=== PATIENT | female | born 1955 | race Caucasian/White ===

== ENCOUNTER → 2017-10-14 | Outpatient (CLI) | payer OTHER, MEDICARE ==
[2016-08-06 10:11] VITALS: BMI 34.7
[~2017-10-14] MED LIST: ACE325 PO; ACET325S18 PO; ALB18R INH; ALBU8.5H IH; AMIT100T53 PO; AMLO-96 PO; AMLO-99 PO; AMOX-559 PO; ARIP10TA4 PO; ARIP2TAB9 PO; ARIP400S IM; ARIP5TAB28 PO; ASCO-180 PO; ASPI81TA94 PO; AZIT-1 PO; BIOT5CAP PO; CANA100T PO; CAR100 PO; CAR200 PO; CARB-82 PO; CARB-91 PO; CARB100C4 PO; CARB100O2 PO; CARB100O7 PO; CARB200C2 PO; CARB400T10 PO; CEL100 PO; CELE-1 PO; CELE100C79 PO; CHOL500025 PO; CITA-139 PO; CLO1 PO; CLON-1 PO; CLON-294 PO; CLON-327 PO; CLON-389 PO; CODE118S5 PO; CORED EACH EAR; CYA1000 PO; CYAN1TAB45 SL; CYCL10TA29 PO; DES5 PO; DIPH-740 PO; DOCU-416 PO; EST5T TD; ESTR0.5T18 PO; ESZ2 PO; ESZO1TAB19 PO; EZE10 PO; FA/M1TAB27 PO; FENO130C6 PO; FENO134C5 PO; FENO43CA PO; FISH OIL1 CAP PO; FOLI-68 PO; FUR20 PO; FUR40 PO; FURO-43 PO; FURO-45 PO; GABA-549 PO; GABA-551 PO; HORMONE PATCH TD; HYDR-2966 PO; HYDR-4225 PO; IBUP600T22 PO; LAMO50TA PO; LEV112 PO; LEV125 PO; LEV2I IV; LEVO125T77 PO; LEVO150T72 PO; LEVO50 PO; LEVO75TA68 PO; LOR1 PO; LOR5/325 PO; LORA-1221 PO; LORA-636 PO; LURA40TA3 PO; LURA60TA; MECL-111 PO; METF-1 PO; METF-410 PO; METO-233 PO; METO200T12 PO; METO50TA PO; METO50TA19 PO; MIRT-1 PO; MULT-1379 PO; MULT-820 PO; NALT50TA15 PO; NEBI2.5T5; NIT4 SL; OMEG-11 PO; OMEP-125 PO; OMEP40CA79 PO; OXY20 PO; OXYC-717 PO; OXYC-865 PO; OXYC1TAB54 PO; OXYC20TA86 PO; PAN20 PO; PAN40 PO; PENI-24 PO; PER PO; POTA-53 PO; PRAZ2CAP26 PO; QUET150T3 PO; QUET25TA PO; QUET25TA30 PO; QUEXR300PT GT; RABE20TA33 PO; RAME8TAB43 PO; ROSU40TA18 PO; ROSU5TAB8 PO; SENN-284 PO; SITA1TAB17 PO; SODI30SP6 NS; SPIR100T30 PO; TRA50 PO; VAL80 PO; VALS160T2; VALS320T12 PO; VALS40TA6 PO; VITAMINS; WAR5 PO; [UNRECOGNIZED DRUG - CODE] PO; [UNRECOGNIZED DRUG - CODE] PO; [UNRECOGNIZED DRUG - CODE] PO; [UNRECOGNIZED DRUG - CODE] PO; hygroton PO; trintellix PO
[2017-10-14 11:29] LABS: PLATELET COUNT, AUTOMATED 228 K/uL (150-450)
[2017-10-14 11:43] LABS: LDL CHOLESTEROL 53 mg/dl
== END ==
LOC: LAB 10:28
PROVIDERS: ATTEND Nurse Practitioner Family
DX: R07.9 Chest pain, unspecified (principal); E11.69 Type 2 diabetes mellitus with other specified complication; E11.40 Type 2 diabetes mellitus with diabetic neuropathy, unspecified; E34.9 Endocrine disorder, unspecified; Z98.84 Bariatric surgery status; I25.2 Old myocardial infarction; I10 Essential (primary) hypertension; R09.02 Hypoxemia; R73.01 Impaired fasting glucose; C73 Malignant neoplasm of thyroid gland; E66.01 Morbid (severe) obesity due to excess calories; G47.33 Obstructive sleep apnea (adult) (pediatric); I89.0 Lymphedema, not elsewhere classified; R53.82 Chronic fatigue, unspecified; E78.00 Pure hypercholesterolemia, unspecified; E55.9 Vitamin D deficiency, unspecified
CPT/HCPCS: 36415; 82040; 82247; 82306; 82310; 82374; 82435; 82465; 82565; 82607; 82947; 83036; 83718; 84075; 84132; 84155; 84295; 84443; 84450; 84460; 84478; 84520; 85025

== ENCOUNTER → 2017-11-12 | Outpatient (CLI) | payer OTHER, MEDICARE ==
[2016-08-06 10:11] VITALS: BMI 34.7
[~2017-11-12] MED LIST changes: -VALS160T2; +VALS160T7
--- NOTE | 2017-11-12 14:03 | EKG ---
FACILITY: [facility] PATIENT NAME: CLIFF PERRY : [id number] MR: [id number] V: [id number] EXAM DATE: ORDERING PHYSICIAN: FELIPE MARTINEZ TECHNOLOGIST: Aníbal Simmons Reason : Blood Pressure : / mmHG Vent. Rate : 065 BPM Atrial Rate : 065 BPM P-R Int : 202 ms QRS Dur : 092 ms QT Int : 430 ms P-R-T Axes : 068 043 043 degrees QTc Int : 447 ms Normal sinus rhythm Normal ECG Confirmed by DAVID MOREIRA ([id number]) on 11/12/2017 3:14:12 PM Referred By: Confirmed By:DAVID MOREIRA
--- NOTE | 2017-11-13 22:43 | RADIOLOGY IMAGING REPORT ---
FACILITY: [facility] PATIENT NAME: CLIFF PERRY : [id number] MR: [id number] V: [id number] EXAM DATE: ORDERING PHYSICIAN: FELIPE MARTINEZ TECHNOLOGIST: Mayelin Varela EXAMINATION:TWO-DIMENSIONAL ECHOCARDIOGRAPH REASON:HTN/HX VT 2D Measurements (normal values in centimeters) LV endLV endRV endVent.LV PostAorticLeftPercent DiastolicSystolicDiastolicSeptumWallRootAtriumShortening (3.5-5.7)(0.9-2.6)(0.6-1.1)(0.6-1.1)(2.0-3.7)(1.9-4.0)(25-35%) [id number]% STROKE VOLUME: 70ml ESTIMATED EJECTION FRACTION:73% PARASTERNAL LONG AXIS: Overall left ventricular systolic function appears to be normal. No specific wall motion abnormalities are noted. PARASTERNAL SHORT AXIS: Overall left ventricular function again appears to be normal. No wall motion abnormalities are noted. Color examination of the valves was unremarkable in this view. The view was somewhat technically difficult. Aortic valve is trileaflet in configuration & appears to open normally. Right ventricular also appears to contract normally. APICAL FOUR AND TWO CHAMBER: Normal left ventricular ejection fraction. No specific wall motion abnormalities are noted in this view. Aortic valve area & mitral valve area both measure within normal ranges at 3.0 & 2.9cm2 respectively. Left atrial & right atrial volumes are measured within normal ranges at 25 & 27ml/m2. Tricuspid regurgitation Vmax measured 1.83m/sec with an estimated right atrial pressure of 3mm Hg giving a total right ventricular systolic pressure within normal range at 16mm Hg. SUBCOSTAL VIEW: No pericardial effusion was noted. No atrioseptal or ventriculoseptal defects were appreciated. Doppler examination of the mitral valve in diastole does reveal a normal pattern. There is reversal with Valsalva suggesting moderate decrease in diastolic function. OVERALL IMPRESSION: 1. Normal left ventricular ejection fraction of 73% with a moderate decrease in diastolic function. 2. Normal chamber sizes with the right ventricle being mildly enlarged. Other chamber sizes are all normal. 3. Color examination of the valves reveals a trace of mitral & tricuspid insufficiency with estimated right ventricular systolic pressures within normal ranges. No other abnormalities are noted. Specifically no wall motion abnormalities were noted. Dictated by: Héctor Farmer M.D. on 11/12/2017 at 21:46 Transcribed by: NAUN on 11/13/2017 at 13:34 Approved by: Héctor Farmer M.D. on 11/13/2017 at 22:40 [facility]
== END ==
LOC: US 00:18
PROVIDERS: ATTEND Nurse Practitioner Family
DX: I50.30 Unspecified diastolic (congestive) heart failure (principal); I51.7 Cardiomegaly; I34.0 Nonrheumatic mitral (valve) insufficiency; I07.1 Rheumatic tricuspid insufficiency
CPT/HCPCS: 93005; 93306

== ENCOUNTER 2017-12-08 00:21 | Inpatient (IN) | payer OTHER, MEDICARE ==
[2016-08-06 10:11] VITALS: Ht 162.6 cm; Wt 97.5 kg
[~2017-12-08] VITALS: Ht 162.6 cm; Wt 97.5 kg
[2017-12-08] VITALS (16 sets, daily range): BP systolic 131–151; BP diastolic 66–76
[~2017-12-08 00:21] MED LIST changes: +QUEXR300PT PO; +VORT10TA PO
[2017-12-08] MEDS ORDERED: LIDOCAINE/SOD BICARB 8.4% SYR ID ONE (06:00)
[2017-12-08] MEDS ORDERED: MIDAZOLAM 2 MG/2 ML VIAL IVP PRN (06:00)
[2017-12-08] MEDS ORDERED: NORMOSOL R SOLN(*) 1000 ML BAG 1,000 ML IV PRN (06:00)
[2017-12-08] MEDS ORDERED: CLINDAMYCIN(*) 900 MG/NS 50 ML 50 ML IVPB ONE (06:00)
[2017-12-08] MEDS ORDERED: PROPOFOL EMUL(*) 10MG/ML 20 ML 20 ML ONE (06:26)
[2017-12-08] MEDS ORDERED: PROPOFOL EMUL(*) 10MG/ML 20 ML 60 ML ONE (06:26)
[2017-12-08] MEDS ORDERED: DEXAMETHASONE SOD PHOS 10MG/ML ONE (06:26)
[2017-12-08] MEDS ORDERED: MIDAZOLAM 2 MG/2 ML VIAL ONE (06:26)
[2017-12-08] MEDS ORDERED: ONDANSETRON 4 MG/2 ML VIAL ONE (06:26)
[2017-12-08] MEDS ORDERED: fentaNYL CITR 100 MCG/2 ML AMP ONE (06:26)
[2017-12-08] MEDS ORDERED: LIDOCAINE MPF 1% 5 ML VIAL ONE ×2 (06:26)
[2017-12-08] MEDS ORDERED: ROCURONIUM BROM 10 MG/ML 10 ML ONE (06:26)
[2017-12-08] MEDS ORDERED: REMIFENTANIL HCL 1 MG VIAL ONE (06:33)
[2017-12-08] MEDS ORDERED: NS(*) 0.9% 100 ML BAG 200 ML ONE (06:34)
[2017-12-08] MEDS ORDERED: PHENYLEPHRINE 10 MG/1 ML VIAL ONE (07:45)
[2017-12-08] MEDS ORDERED: KETAMINE HCL 500 MG/10 ML VIAL ONE (07:46)
[2017-12-08] MEDS ORDERED: NS 0.9% IRRIGATION 1000ML PLCT IR ONE (07:55)
[2017-12-08] MEDS ORDERED: ePHEDrine 25 MG/5 ML DISP.SYR IVP ONE (08:02)
--- NOTE | 2017-12-08 09:12 | RADIOLOGY IMAGING REPORT ---
[place] [facility] [place] NAME: Connie Chambers : 1955 MR: [id number] V: [id number] EXAM DATE: ORDERING PHYSICIAN: ZOILA HAWKINS TECHNOLOGIST: Location: [facility] Patient: Connie Chambers : 1955 Visit/Account:[id number] Date of Sevice: 12/08/2017 Technique: CERVICAL SPINE 1 VIEW HISTORY: Hardware removal Comparison studies: CT cervical spine February 06, 2014 FINDINGS: An interbody spacer is noted at C5-C6. There is anterior spinal fusion hardware at C6-C7. Endplate osteophytes are noted within the mid cervical spine. IMPRESSION: 1. Operative radiograph as characterized above. Report Dictated By: Mark Worthington DO at 12/08/2017 9:06 AM Report E-Signed By: Mark Worthington DO at 12/08/2017 9:09 AM WSN:[id number]
[2017-12-08] MEDS ORDERED: APAP/HYDROCODONE 325/5 TAB PO PRN (10:05)
[2017-12-08] MEDS ORDERED: ACETAMINOPHEN 500 MG TAB PO PRN (10:05)
[2017-12-08] MEDS ORDERED: BISACODYL 10 MG SUPP PR PRN (10:05)
[2017-12-08] MEDS ORDERED: FLUSH 10 ML SYR IVP PRN (10:05)
[2017-12-08] MEDS ORDERED: LR(*) 1000 ML BAG 1,000 ML IV PRN (10:05)
[2017-12-08] MEDS ORDERED: BENZOCAINE/MENTHOL 1 EACH LOZG PO PRN (10:05)
[2017-12-08] MEDS ORDERED: ACETAMINOPHEN(*)1000 MG/100 ML 100 ML IVPB PRN (10:05)
[2017-12-08] MEDS ORDERED: HYDROmorphone HCL 2 MG/ML SDV IVP PRN (10:05)
[2017-12-08] MEDS ORDERED: diphenhydrAMINE 25 MG CAP PO PRN (10:05)
[2017-12-08] MEDS ORDERED: ONDANSETRON 4 MG/2 ML VIAL IVP PRN (10:05)
[2017-12-08] MEDS ORDERED: MAGNESIUM HYDROXIDE* 30ML UDCP PO PRN (10:05)
[2017-12-08] MEDS ORDERED: DIAZEPAM 5 MG TAB PO PRN (10:05)
[2017-12-08] MEDS ORDERED: oxyCODONE HCL 5 MG CAP PO PRN (10:05)
--- NOTE | 2017-12-08 10:38 | OPERATIVE REPORT 1 ---
EVENT DATE: December 08, 2017 SURGEON: Alejandro Manuel MD ANESTHESIOLOGIST: Kit Jay MD ANESTHESIA: General endotracheal anesthesia. CHEF'S ASSISTANT: Leonard Sorto PA-C PREOPERATIVE DIAGNOSIS Left C7 radiculopathy with retained cervical implants. POSTOPERATIVE DIAGNOSIS Left C7 radiculopathy with retained cervical implants. PROCEDURE PERFORMED 1. Removal of C5-C6 anterior cervical plate. 2. Anterior cervical discectomy and fusion at C6-C7. IV FLUIDS 1400 mL. ESTIMATED BLOOD LOSS 30 mL. IMPLANTS An 8 mm lordotic size large footprint nanoLOCK interbody implant from [employer] and two 3.5 x 14 mm screws also from [employer] plus a 1 mL Vi-Bone. SPECIMENS None. DRAINS A 10 Bulgarian round Favian-De Leon drain. COMPLICATIONS None. DISPOSITION Post anesthesia care unit. INDICATIONS FOR SURGERY Ms. Chambers is several years status post C5-C6 anterior cervical discectomy and fusion. She was doing relatively well until she began experiencing radiating pain into the left periscapular region as well as occasional radiating symptoms down the posterior aspect of the upper arm. She had numbness and tingling in the same distribution as her pain, and no improvement with nonsurgical management. Imaging studies showed large disk osteophyte complex on the left at C6-C7 compromising the C7 nerve root as it exited through the foramen. Secondary to ongoing symptoms and failure to improve with nonsurgical treatment, Ms. Chambers was offered and elected to undergo removal of her previously placed anterior cervical plate and then anterior cervical discectomy and fusion at C6-C7. Prior to surgery, we obtained an ENT consult that showed symmetric functioning vocal folds bilaterally. A long discussion was had with the patient prior to surgery regarding risks, benefits and alternatives to surgery. Specific risks including bleeding, infection, damage to surrounding structures, damage to the esophagus with possible need for tube feedings, swallowing difficulty, damage to the superior or recurrent laryngeal nerve, persistent and/or worsening pain, nerve damage, spinal cord injury, , blindness, sexual dysfunction, autonomic nervous system dysfunction and other unforeseen medical and surgical complications were discussed. She voiced an understanding and wished to proceed. A discussion was had regarding neurophysiologic monitoring. Neurophysiologic monitoring is not an infallible means of preventing neurologic injury. The patient understands that times, neurophysiologic monitoring signals can be lost in the absence of a correctable maneuver. In this situation, the surgeon is blinded to any adverse changes, and therefore is unable to make any maneuvers to alter this course. Throughout the procedure, there were no significant changes in neurophysiologic monitoring. DESCRIPTION OF PROCEDURE On the date of surgery, the patient was met in the preoperative hold area. All questions were answered, and the operative site was identified and marked by myself. The patient was brought in good condition to the operating room, and after succumbing to anesthesia, was positioned in a supine position with the neck slightly extended on a standard OR bed. All bony protuberances and soft tissues were well padded in the standard fashion. Care was taken to maintain appropriate perfusion pressures during anesthesia. Preoperative antibiotics were administered according to the appropriate timing schedule. At the conclusion of the procedure, sponge and needle counts were correct x 2. A final time out was undertaken by members of the operating team to confirm correct patient, correct levels and correct surgery. An incision was then made through the old surgical scar on the left side, and blunt dissection was taken down to the level of the sternocleidomastoid muscle. The carotid pulse was identified, and dissection was taken medial to the carotid sheath, coming down onto the anterior aspect of the cervical spine. The previously placed cervical plate at C5-C6 was identified, and the screws were cleared of soft tissue and bone. Appropriate tools were used to remove the implant. The C5-C6 fusion was explored and found to be solid. Attention was then turned to the C6-C7 level. A high speed terese was used to remove a large overlying osteophyte. Disk space was identified, and the disk incised using a 15 blade. Self retaining retractors were placed, and the microscope was brought into the field. Progressively smaller curettes were used to remove the disk from ventral to dorsal, taking care to strip all cartilaginous fragments from the end plates of the vertebral bodies above and below. High speed terese was used to take down the osteophytes, and the uncovertebral joints were resected with a high speed terese as needed. Once we encountered the posterior annulus, the forward angled curettes were used to carefully dissect through the posterior annulus. A significant amount of soft disk was found on the left side, and removed from a layer between the posterior annulus and the posterior longitudinal ligament. Once the PLL was identified, a forward angled curette and a nerve hook was used to dissect through it carefully. The PLL was then taken down, taking care to remove posterior osteophytes from the superior aspect of C7 and the inferior aspect of C6, using a #1 and #2 Kerrison. Disk osteophyte complex was taken down on the left as well as the right utilizing #2 and #1 Kerrison punches. The nerve hook was ultimately used to ensure appropriate decompression of both the spinal cord and the neural elements in the foramina. The nerve hook was easily passed out the neural foramina bilaterally at the conclusion of the decompression. First a 7 mm, and then an 8 mm rasp of the same footprint of the interbody device was used to further decorticate and trial the interbody space. An 8 mm tall graft was chosen. This was packed with Vi-Bone and then inserted into the disk space and countersunk about 1 mm. Extension was taken out of the table, and the awl was then used through the holes in the implant to penetrate the end plates above and below. Screws were placed, and the construct was found to be securely in place. A lateral radiograph confirmed correct positioning of the implant. The wound was then irrigated, and then closed in layers using interrupted sutures for the platysma, inverted interrupted sutures for the subcutaneous tissue and then a running subcuticular skin stitch. Sponge and needle counts were correct x 2. A 10 Bulgarian round Favian-De Leon drain was left deep to the platysma. POSTOPERATIVE CARE PLAN The patient will remain in the hospital overnight with the head of bed elevated. She will be discharged home on postoperative day #1 and will follow up with me in 2 weeks' time for wound check and examination. TIEN
[2017-12-08] MEDS ORDERED: NS(*) 0.9% 250 ML BAG 250 ML IV PRN (14:40)
--- NOTE | 2017-12-08 15:02 | Hospitalist Consultation ---
History of Present Illness Requesting Physician Dr. Manuel Reason for Consult Medication Management History of Present Illness Patient admitted after anterior cervical discectomy and fusion. There were no known complications. EBL 60cc. History Problems: (1) Depression Status: Chronic (2) HTN (hypertension) Status: Chronic (3) CAD (coronary artery disease) Status: Chronic (4) Thyroid cancer Status: Chronic (5) Paresthesias Status: Chronic (6) GERD (gastroesophageal reflux disease) Status: Chronic Home Meds Reported Medications Levothyroxine Sodium (LEVOTHYROXINE SODIUM) 0.125 Mg Tab, 0.25 MG PO QDAY, TAB 12/08/17 Vortioxetine Hydrobromide (Brintellix) 10 Mg Tablet, 1 TAB PO DAILY 12/02/17 Quetiapine Fumarate (SEROQUEL XR) 300 Mg Tabcr, 2 TAB PO HS 12/02/17 Multivits,Th W-Fe,Other Min (THERA-M) 1 Each Tablet, 1 EACH PO QDAY 08/21/17 Albuterol Sulfate (VENTOLIN HFA) 18 Gm Inh, 2 PUFF INH PRN, INH 08/19/17 Gabapentin (GABAPENTIN) 300 Mg Capsule, 300 MG PO TID, CAPSULE 08/19/17 Cyanocobalamin/Cobamamide (B-12 5,000 MCG SUBLINGUAL TAB) 1 Each Tab.subl, 1 EACH SL Q3D 08/19/17 Rosuvastatin Calcium (CRESTOR) 40 Mg Tablet, 40 MG PO QAM 04/17/17 Valsartan (DIOVAN) 320 Mg Tablet, 320 MG PO QAM 04/17/17 Prazosin Hcl (PRAZOSIN HCL) 2 Mg Capsule, 5 MG PO QHS, CAPSULE MINIPRESS 04/17/17 Omeprazole (OMEPRAZOLE) 20 Mg Capsule.dr, 1 CAP PO QDAY, CAP 04/17/17 Cholecalciferol (Vitamin D3) (VITAMIN D3) 5,000 Unit Tablet, 5000 UNIT PO QAM 04/17/17 Biotin (BIOTIN) 5 Mg Capsule, 5 MG PO QAM, CAPSULE 04/17/17 Metoprolol Succinate (METOPROLOL SUCCINATE) 200 Mg Tab.er.24h, 1 TAB PO QDAY, TAB 04/17/17 Hydrochlorothiazide (HYDROCHLOROTHIAZIDE) 25 Mg Tablet, 1 TAB PO QDAY, TAB 04/17/17 Folic Acid (FOLIC ACID) 1 Mg Tablet, 1 MG PO QDAY, TAB 04/17/17 Aripiprazole (ABILIFY MAINTENA) 400 Mg Suser.vial, 400 MG IM MONTHLY 04/17/17 Aspirin (ASPIRIN) 81 Mg Tab.chew, 81 MG PO QDAY, TAB.CHEW 04/17/17 Nitroglycerin (Nitroquick) 0.4 Mg Subl, 0.4 MG SL PRN 01/14/12 Discontinued Reported Medications Levothyroxine Sodium (SYNTHROID) 150 Mcg Tablet, 250 MCG PO QDAY 08/19/17 Quetiapine Fumarate (SEROQUEL XR) 150 Mg Tab.er.24h, 300 MG PO QHS 04/17/17 Quetiapine Fumarate (SEROQUEL) 25 Mg Tablet, 25 MG PO BID TAKE 50MG AT 0900, 25MG AT 1300 AND 25MG AT 1700 04/17/17 Carbamazepine (CARBAMAZEPINE ER) 400 Mg Tab.er.12h, 200 MG PO QAM TEGRETOL XR 04/17/17 Naltrexone Hcl (NALTREXONE HCL) 50 Mg Tablet, 50 MG PO QHS REVIA 04/17/17 Docusate Sodium (COLACE) 100 Mg Capsule, 100 MG PO QDAY, CAPSULE 04/17/17 Allergies: Coded Allergies: Sulfa (Sulfonamide Antibiotics) (Verified Allergy, Severe, AIRWAY OBSTRUCTION, 12/02/17) cephalexin (Verified Allergy, Mild, 12/02/17) Only allergic to the Extended Release Keflex. strawberry (Verified Allergy, Mild, 12/02/17) Antihistamines - Ethanolamine (Verified Allergy, Unknown, 12/02/17) Patient History: FH: diabetes mellitus FATHER FH: heart disease MOTHER Hx Smoking: No Smoking Status: Never Smoker Exposure to Second Hand Smoke?: No Caffeine Intake: Tea Caffeine/Cups Per Day: 1-2/DAY Hx Alcohol Use: No Hx Substance Use Disorder: No Social Drug Use: Never Social Drugs: Prescription Drugs Amount Of Social Drug/s Used: n/a History of IV Drug Use: No Review of Systems All Systems Reviewed/Normal: Yes, Except as Noted Constitutional: No Fever Cardiovascular: No Chest Pain Respiratory: No Shortness of Breath Exam Vital Signs Vital Signs Date Time Temp Pulse Resp B/P (MAP) Pulse Ox O2 Delivery O2 Flow Rate FiO2 12/08/17 12:15 74 138/69 (92) 95 Nasal Cannula 2.0 12/08/17 10:25 97.7 16 General Appearance: Alert, Awake, No Acute Distress, Afebrile Cardiovascular: Normal Rhythm & Peripheral Pulses Respiratory: No Respiratory Distress, Clear to Auscultation Chest: No Tenderness GI: Abd Soft and Non-Tender Extremities: No Edema Psych: Alert & Oriented X3, Appropriate Mood & Affect Assessment and Plan Problems: (1) Paresthesias Status: Chronic Assessment & Plan: She is on chronic management with Gabapentin. (2) HTN (hypertension) Status: Chronic Assessment & Plan: She is on chronic management with Metoprolol, Hydrochlorothiazide, Valsartan. Hydrochlorothiazide will be held. Metoprolol and Valsartan will be started with hold parameters. (3) GERD (gastroesophageal reflux disease) Status: Chronic Assessment & Plan: She is on chronic treatment with Omeprazole. Will place on Protonix during admission. (4) Depression Status: Chronic Assessment & Plan: She is on chronic management with Abilify, Seroquel, Prazosin, Trintellix. (5) CAD (coronary artery disease) Status: Chronic Assessment & Plan: She is on chronic treatment with Crestor. She has a history of 3 cardiac stents. (6) S/P thyroidectomy Status: Chronic Assessment & Plan: Secondary to thyroid cancer. She is on chronic treatment with levothyroxine. Venous Thromboembolism Antithrombotics Is Pt On Any Antithrombotics?: No Prophylaxis Tx Contraindicated Pharmacological Contraindicati: Surgical Contraindication Exam Sepsis Risk: No Definite Risk Problem Qualifiers (1) HTN (hypertension): Hypertension type: essential hypertension Qualified Codes: I10 - Essential ( primary) hypertension (2) Depression: Depression Type: major depressive disorder WEST AGUIRREP Dec 08, 2017 15:01
[2017-12-08] MEDS ORDERED: PROMETHAZINE 25 MG/ML 1 ML AMP IVP PRN (15:05)
[2017-12-08] MEDS ORDERED: LEV125 PO (15:10)
[2017-12-08] MEDS ORDERED: PRAZ5CAP16 PO (15:22)
[2017-12-08] MEDS: CLINDAMYCIN(*) 900 MG/NS 50 ML 50 ML IVPB SCH ×2 (15:27→22:16)
[2017-12-08] MEDS: DOCUSATE SODIUM 100 MG CAP PO SCH (20:54)
[2017-12-08] MEDS: GABAPENTIN 300 MG CAP PO SCH (20:54)
[2017-12-08] MEDS ORDERED: QUETIAPINE FUMARATE 300 MG TABCR PO SCH (21:00)
[2017-12-08] MEDS ORDERED: PRAZOSIN HCL 5 MG CAP PO SCH (21:00)
[2017-12-08] MEDS ORDERED: QUEtiapine FUM 100 MG TAB PO SCH (21:45)
[2017-12-09 05:52] VITALS: BP 118/57
[2017-12-09] MEDS ORDERED: LEVOTHYROXINE SOD 0.025 MG TAB PO SCH (06:00)
[2017-12-09] MEDS ORDERED: LEVOTHYROXINE SOD 0.125 MG TAB PO SCH ×2 (06:30→09:00)
[2017-12-09] MEDS: CLINDAMYCIN(*) 900 MG/NS 50 ML 50 ML IVPB SCH (06:44)
[2017-12-09 07:20] VITALS: BP 120/67
[2017-12-09] MEDS: GABAPENTIN 300 MG CAP PO SCH (08:54)
[2017-12-09] MEDS: DOCUSATE SODIUM 100 MG CAP PO SCH (08:54)
--- NOTE | 2017-12-09 08:55 | RADIOLOGY IMAGING REPORT ---
[place] [facility] [place] NAME: Connie Chambers : 1955 MR: [id number] V: [id number] EXAM DATE: ORDERING PHYSICIAN: ZOILA HAWKINS TECHNOLOGIST: Location: [facility] [place] Patient: Connie Chambers : 1955 Visit/Account:[id number] Date of Sevice: 12/09/2017 Technique: CERVICAL SPINE 2 OR 3 VIEW HISTORY: Postoperative Comparison studies: Cervical spine radiographs December 08, 2017 FINDINGS: Anterior cervical fusion hardware is noted at C6-C7. There is interbody spacer with osseou s fusion at C5-C6. Overall, there is gross anatomic alignment at these respective levels. Degenerat diya changes are again noted characterized by endplate osteophyte formation most pronounced at C3 and C4. The vertebral body heights are maintained. No kumar or retrolisthesis. IMPRESSION: 1. Postoperative and degenerative changes as described above. There is gross anatomic alignment. Report Dictated By: Mark Worthington DO at 12/09/2017 8:49 AM Report E-Signed By: Mark Worthington DO at 12/09/2017 8:51 AM WSN:[email or web address]
[2017-12-09 08:56] VITALS: BP 107/57
[2017-12-09] MEDS ORDERED: PANTOPRAZOLE SOD 40 MG TABEC PO SCH (09:00)
[2017-12-09] MEDS ORDERED: VORTIOXETINE HYDROBROMIDE 10 MG TAB PO SCH (09:00)
[2017-12-09] MEDS ORDERED: METOPROLOL SUCC XL 50 MG TABCR 50 MG TAB.ER.24H PO SCH (09:00)
[2017-12-09] MEDS ORDERED: ROSUVASTATIN CALCIUM 10 MG TAB PO SCH (09:00)
[2017-12-09] MEDS ORDERED: VORTIOXETINE HYDROBROMIDE PO SCH (09:00)
[2017-12-09] MEDS ORDERED: VALSARTAN 80 MG TAB PO SCH (09:00)
[2017-12-09] MEDS ORDERED: HYDR-385 PO (09:25)
[2017-12-09] MEDS ORDERED: DOCU240C84 PO (09:25)
--- NOTE | 2017-12-09 09:26 | Hospitalist Progress Note ---
Subjective Progress Notes Subjective Patient has no complaints this morning. She states she is ready to go home. Patient Complains of: Cardiovascular: No: Chest Pain Respiratory: No: Shortness of Breath Physical Exam Vital Signs Date Time Temp Pulse Resp B/P (MAP) Pulse Ox O2 Delivery O2 Flow Rate FiO2 12/09/17 08:56 107/57 (74) 12/09/17 07:20 96 Room Air 12/09/17 07:20 98.8 61 16 12/08/17 14:30 2.0 General Appearance: Alert, Awake, No Acute Distress, Afebrile Cardiovascular: Regular Rate and Rhythm Respiratory: No Respiratory Distress, Clear to Auscultation Psych: Alert & Oriented X3, Appropriate Mood & Affect Assessment and Plan Problems: (1) Paresthesias Status: Chronic Assessment & Plan: She is on chronic management with Gabapentin. (2) HTN (hypertension) Status: Chronic Assessment & Plan: She is on chronic management with Metoprolol, Hydrochlorothiazide, Valsartan. Hydrochlorothiazide will be stopped. Metoprolol and Valsartan will be continued with hold parameters. The patient will continue to monitor her blood pressure. She will follow up with Lois Glover regarding her lower blood pressures. (3) GERD (gastroesophageal reflux disease) Status: Chronic Assessment & Plan: She is on chronic treatment with Omeprazole. (4) Depression Status: Chronic Assessment & Plan: She is on chronic management with Abilify, Seroquel, Prazosin, Trintellix. (5) CAD (coronary artery disease) Status: Chronic Assessment & Plan: She is on chronic treatment with Crestor. She has a history of 3 cardiac stents. (6) S/P thyroidectomy Status: Chronic Assessment & Plan: Secondary to thyroid cancer. She is on chronic treatment with levothyroxine. Exam Sepsis Risk: No Definite Risk Problem Qualifiers (1) HTN (hypertension): Hypertension type: essential hypertension Qualified Codes: I10 - Essential ( primary) hypertension (2) Depression: Depression Type: major depressive disorder WEST AGUIRRE Dec 09, 2017 09:25
== END 2017-12-09 10:20 | disposition home or self-care (01) | DRG 473 ==
LOC: OR 00:21 → OBSVTOIN 10:25 → INTOOBSV 10:25 → MED 10:25
PROVIDERS: ADMIT Orthopaedic Surgery; ATTEND Orthopaedic Surgery
PROC: 0PP304Z Removal of Internal Fixation Device from Cervical Vertebra, Open Approach (ICD-10-PCS; 2017-12-08)
PROC: 0RB30ZZ Excision of Cervical Vertebral Disc, Open Approach (ICD-10-PCS; 2017-12-08)
PROC: 0RG10A0 Fusion of Cervical Vertebral Joint with Interbody Fusion Device, Anterior Approach, Anterior Column, Open Approach (ICD-10-PCS; principal; 2017-12-08 07:07)
DX: M50.123 Cervical disc disorder at C6-C7 level with radiculopathy (principal); M25.78 Osteophyte, vertebrae; I25.10 Atherosclerotic heart disease of native coronary artery without angina pectoris; G47.33 Obstructive sleep apnea (adult) (pediatric); I10 Essential (primary) hypertension; E89.0 Postprocedural hypothyroidism; E78.5 Hyperlipidemia, unspecified; K21.9 Gastro-esophageal reflux disease without esophagitis; F31.9 Bipolar disorder, unspecified; R20.2 Paresthesia of skin; Z95.5 Presence of coronary angioplasty implant and graft; I25.2 Old myocardial infarction; Z99.81 Dependence on supplemental oxygen; Z90.410 Acquired total absence of pancreas; Z96.653 Presence of artificial knee joint, bilateral; Z85.850 Personal history of malignant neoplasm of thyroid; Z88.2 Allergy status to sulfonamides; Z88.8 Allergy status to other drugs, medicaments and biological substances
CPT/HCPCS: 36415; 72020; 72040; 86850; 86900; 86901; 97161; C1713; J1100; J2001; J2250; J2370; J2405; J2704; J3010; J3490; J7050; L0120

== ENCOUNTER 2018-02-18 13:03 | Emergency (ER) | payer OTHER, MEDICARE ==
[2016-08-06 10:11] VITALS: Wt 97.5 kg
[~2018-02-18 13:03] MED LIST changes: -CITA-139 PO; +CITA-145 PO; +DOCU240C84 PO; +HYDR-385 PO; -METF-410 PO; +METF-411 PO; +PRAZ5CAP16 PO
--- NOTE | 2018-02-18 13:13 | ER Report ---
History and Physical Time Seen By MD: 13:12 HPI/ROS CHIEF COMPLAINT: Headache, twitching the muscle under the left eyelid. HISTORY OF PRESENT ILLNESS: 62-year-old female patient presents to emergency room with complaint of headache and twitching in the muscle on the left eyelid. Patient states this been going on for last several weeks. Patient states that she has had some episodes where she suddenly lightheaded, but not had any syncopal episodes. Patient denies any nausea or vomiting. Patient states that the headaches have been significant. She states that she has had some blurred vision as well. She states she is not taking any medication for this. She states symptoms typically resolve on their own. Patient states she went to an acute care clinic here in town, and was referred to the emergency room. REVIEW OF SYSTEMS: Respiratory: No cough, no dyspnea. Cardiovascular: No chest pain, no palpitations. Gastrointestinal: No vomiting, no abdominal pain. Musculoskeletal: As noted above Allergies: Coded Allergies: Sulfa (Sulfonamide Antibiotics) (Verified Allergy, Severe, AIRWAY OBSTRUCTION, 02/18/18) cephalexin (Verified Allergy, Mild, 02/18/18) Only allergic to the Extended Release Keflex. strawberry (Verified Allergy, Mild, 02/18/18) Antihistamines - Ethanolamine (Verified Allergy, Unknown, 02/18/18) Home Meds Reported Medications Docusate Calcium (SURFAK) 240 Mg Capsule, 240 MG PO QDAY, #9 CAPSULE 12/09/17 Prazosin Hcl (PRAZOSIN HCL) 5 Mg Capsule, 5 MG PO QHS, CAPSULE 12/08/17 Levothyroxine Sodium (LEVOTHYROXINE SODIUM) 0.125 Mg Tab, 0.25 MG PO QDAY, TAB 12/08/17 Vortioxetine Hydrobromide (Brintellix) 10 Mg Tablet, 1 TAB PO DAILY 12/02/17 Quetiapine Fumarate (SEROQUEL XR) 300 Mg Tabcr, 2 TAB PO HS 12/02/17 Multivits, W-Fe,Other Min (THERA-M) 1 Each Tablet, 1 EACH PO QDAY 08/21/17 Albuterol Sulfate (VENTOLIN HFA) 18 Gm Inh, 2 PUFF INH PRN, INH 08/19/17 Gabapentin (GABAPENTIN) 300 Mg Capsule, 300 MG PO TID, CAPSULE 08/19/17 Cyanocobalamin/Cobamamide (B-12 5,000 MCG SUBLINGUAL TAB) 1 Each Tab.subl, 1 EACH SL Q3D 08/19/17 Rosuvastatin Calcium (CRESTOR) 40 Mg Tablet, 40 MG PO QAM 04/17/17 Valsartan (DIOVAN) 320 Mg Tablet, 320 MG PO QAM 04/17/17 Omeprazole (OMEPRAZOLE) 20 Mg Capsule.dr, 1 CAP PO QDAY, CAP 04/17/17 Cholecalciferol (Vitamin D3) (VITAMIN D3) 5,000 Unit Tablet, 5000 UNIT PO QAM 04/17/17 Biotin (BIOTIN) 5 Mg Capsule, 5 MG PO QAM, CAPSULE 04/17/17 Metoprolol Succinate (METOPROLOL SUCCINATE) 200 Mg Tab.er.24h, 1 TAB PO QDAY, TAB 04/17/17 Folic Acid (FOLIC ACID) 1 Mg Tablet, 1 MG PO QDAY, TAB 04/17/17 Aripiprazole (ABILIFY MAINTENA) 400 Mg Suser.vial, 400 MG IM MONTHLY 04/17/17 Nitroglycerin (Nitroquick) 0.4 Mg Subl, 0.4 MG SL PRN 01/14/12 Discontinued Reported Medications Hydrocodone Bit/Acetaminophen (HYDROCODON-ACETAMINOPHEN 5-325) 1 Each Tablet, 1- 2 EACH PO Q6H Y for PAIN, #49 TAB 12/09/17 Past Medical/Surgical History Patient has a past medical history of migraines, [place], angina, hypertension, hyperlipidemia, asthma, pneumonia, reflux, chronic back pain, hypothyroidism, bipolar, depression, anxiety, thyroid cancer. Patient has a surgical history of cardiac stent, gastric sleeve, arthrotomy, hysterectomy, cholecystectomy, bladder surgery, multiple knee, foot and arm surgery, back and neck fusion, sinus surgery 3. Patient has a family medical history of cancer, psychiatric problems. Reviewed Nurses Notes: Yes Hx Smoking: No Smoking Status: Never Smoker Exposure to Second Hand Smoke?: No Hx Substance Use Disorder: No Hx Alcohol Use: No Constitutional Vital Sign - Last 24 Hours 02/18/18 02/18/18 02/18/18 02/18/18 13:08 14:00 14:15 14:30 Temp 98.0 Pulse 69 61 61 Resp 18 21 9 B/P (MAP) 155/83 139/69 (92) 134/68 (90) 150/70 (96) Pulse Ox 92 93 93 O2 Delivery Room Air Intake and Output 02/18/18 02/18/18 02/19/18 15:00 23:00 07:00 Intake Total 1000 ml Balance 1000 ml Physical Exam General Appearance: The patient is alert, has no immediate need for airway protection and no current signs of toxicity. Eyes: Pupils equal and round no injection. Extraocular movements intact. Respiratory: Chest is non tender, lungs are clear to auscultation. Cardiac: regular rate and rhythm Gastrointestinal: Abdomen is soft and non tender, no masses, bowel sounds normal. Musculoskeletal: Neck: Neck is supple and non tender. Extremities have full range of motion and are non tender. Skin: No rashes or lesions. Neuro: Patient is alert and oriented 4, cranial nerves II-XII grossly intact. DIFFERENTIAL DIAGNOSIS: After history and physical exam differential diagnosis was considered for nausea and imbalance, stroke, muscle spasm, adverse reaction to medication. Medical Decision Making Data Points Result Diagram: 02/18/18 1331 02/18/18 1331 Laboratory Hematology Test 02/18/18 13:31 02/18/18 13:34 Red Blood Count 4.22 M/uL (4.17-5.56) Mean Corpuscular Volume 86.8 fL (80.0-96.0) Mean Corpuscular Hemoglobin 30.0 pg (26.0-33.0) Mean Corpuscular Hemoglobin Concent 34.6 g/dL (32.0-36.0) Red Cell Distribution Width 12.9 % (11.5-14.5) Mean Platelet Volume 7.9 fL (7.2-11.1) Neutrophils (%) (Auto) 64.8 % (39.4-72.5) Lymphocytes (%) (Auto) 25.1 % (17.6-49.6) Monocytes (%) (Auto) 8.6 % (4.1-12.4) Eosinophils (%) (Auto) 0.8 % (0.4-6.7) Basophils (%) (Auto) 0.7 % (0.3-1.4) Nucleated RBC Relative Count (auto) 0.0 /100WBC Neutrophils # (Auto) 4.7 K/uL (2.0-7.4) Lymphocytes # (Auto) 1.8 K/uL (1.3-3.6) Monocytes # (Auto) 0.6 K/uL (0.3-1.0) Eosinophils # (Auto) 0.1 K/uL (0.0-0.5) Basophils # (Auto) 0.0 K/uL (0.0-0.1) Nucleated RBC Absolute Count (auto) 0.00 K/uL Sodium Level 140 mmol/L (137-145) Potassium Level 3.6 mmol/L (3.5-5.0) Chloride Level 101 mmol/L (98-107) Carbon Dioxide Level 27 mmol/L (22-31) Blood Urea Nitrogen 11 mg/dl (7-18) Creatinine 0.90 mg/dl (0.52-1.04) Glomerular Filtration Rate Calc > 60.0 Random Glucose 119 mg/dl (75-110) Calcium Level 8.5 mg/dl (8.4-10.2) Total Bilirubin 0.5 mg/dl (0.2-1.3) Aspartate Amino Transf (AST/SGOT) 37 U/L (0-35) Alanine Aminotransferase (ALT/SGPT) 45 U/L (0-56) Alkaline Phosphatase 96 U/L (0-126) C-Reactive Protein < 0.5 mg/dl (<1.0) Total Protein 7.0 gm/dl (6.3-8.2) Albumin 3.8 g/dl (3.5-5.0) Urine Color Colorless Urine Clarity Clear Urine pH 6.0 pH (4.8-9.5) Urine Specific [place] 1.003 Urine Protein Negative mg/dL (NEGATIVE) Urine Glucose (UA) Negative mg/dL (NEGATIVE) Urine Ketones Negative mg/dL (NEGATIVE) Urine Blood Negative (NEGATIVE) Urine Nitrite Negative (NEGATIVE) Urine Bilirubin Negative (NEGATIVE) Urine Urobilinogen Negative mg/dL (0.2-1.9) Urine Leukocyte Esterase Negative (NEGATIVE) Urine RBC None /HPF (0-2/HPF) Urine WBC <1 /HPF (0-5/HPF) Urine Squamous Epithelial Cells Many /LPF (</=FEW) Urine Bacteria Few /HPF (NONE-FEW) Urine Mucus None /HPF (NONE-FEW) Chemistry Test 02/18/18 13:31 02/18/18 13:34 White Blood Count 7.2 k/uL (4.5-11.0) Red Blood Count 4.22 M/uL (4.17-5.56) Hemoglobin 12.7 g/dL (12.0-16.0) Hematocrit 36.6 % (34.0-47.0) Mean Corpuscular Volume 86.8 fL (80.0-96.0) Mean Corpuscular Hemoglobin 30.0 pg (26.0-33.0) Mean Corpuscular Hemoglobin Concent 34.6 g/dL (32.0-36.0) Red Cell Distribution Width 12.9 % (11.5-14.5) Platelet Count 225 K/uL (150-450) Mean Platelet Volume 7.9 fL (7.2-11.1) Neutrophils (%) (Auto) 64.8 % (39.4-72.5) Lymphocytes (%) (Auto) 25.1 % (17.6-49.6) Monocytes (%) (Auto) 8.6 % (4.1-12.4) Eosinophils (%) (Auto) 0.8 % (0.4-6.7) Basophils (%) (Auto) 0.7 % (0.3-1.4) Nucleated RBC Relative Count (auto) 0.0 /100WBC Neutrophils # (Auto) 4.7 K/uL (2.0-7.4) Lymphocytes # (Auto) 1.8 K/uL (1.3-3.6) Monocytes # (Auto) 0.6 K/uL (0.3-1.0) Eosinophils # (Auto) 0.1 K/uL (0.0-0.5) Basophils # (Auto) 0.0 K/uL (0.0-0.1) Nucleated RBC Absolute Count (auto) 0.00 K/uL Glomerular Filtration Rate Calc > 60.0 Calcium Level 8.5 mg/dl (8.4-10.2) Total Bilirubin 0.5 mg/dl (0.2-1.3) Aspartate Amino Transf (AST/SGOT) 37 U/L (0-35) Alanine Aminotransferase (ALT/SGPT) 45 U/L (0-56) Alkaline Phosphatase 96 U/L (0-126) C-Reactive Protein < 0.5 mg/dl (<1.0) Total Protein 7.0 gm/dl (6.3-8.2) Albumin 3.8 g/dl (3.5-5.0) Urine Color Colorless Urine Clarity Clear Urine pH 6.0 pH (4.8-9.5) Urine Specific [place] 1.003 Urine Protein Negative mg/dL (NEGATIVE) Urine Glucose (UA) Negative mg/dL (NEGATIVE) Urine Ketones Negative mg/dL (NEGATIVE) Urine Blood Negative (NEGATIVE) Urine Nitrite Negative (NEGATIVE) Urine Bilirubin Negative (NEGATIVE) Urine Urobilinogen Negative mg/dL (0.2-1.9) Urine Leukocyte Esterase Negative (NEGATIVE) Urine RBC None /HPF (0-2/HPF) Urine WBC <1 /HPF (0-5/HPF) Urine Squamous Epithelial Cells Many /LPF (</=FEW) Urine Bacteria Few /HPF (NONE-FEW) Urine Mucus None /HPF (NONE-FEW) Urinalysis Test 02/18/18 13:34 Urine Color Colorless Urine Clarity Clear Urine pH 6.0 pH (4.8-9.5) Urine Specific [place] 1.003 Urine Protein Negative mg/dL (NEGATIVE) Urine Glucose (UA) Negative mg/dL (NEGATIVE) Urine Ketones Negative mg/dL (NEGATIVE) Urine Blood Negative (NEGATIVE) Urine Nitrite Negative (NEGATIVE) Urine Bilirubin Negative (NEGATIVE) Urine Urobilinogen Negative mg/dL (0.2-1.9) Urine Leukocyte Esterase Negative (NEGATIVE) Urine RBC None /HPF (0-2/HPF) Urine WBC <1 /HPF (0-5/HPF) Urine Squamous Epithelial Cells Many /LPF (</=FEW) Urine Bacteria Few /HPF (NONE-FEW) Urine Mucus None /HPF (NONE-FEW) EKG/Imaging EKG Interpretation 12 lead EKG: Rhythm: normal sinus rhythm with a ventricular rate of 61 bpm [place]: normal QRS: normal ST segments: normal Imaging Head CT scan without contrast COMPARISONS: February 06, 2014 ADDITIONAL PERTINENT HISTORY: Headache with left-sided numbness. TECHNIQUE: Multiple axial images were obtained from the skull base to the vertex without IV contrast. One of the following dose optimization techniques was utilized in the performance of this exam: Automated exposure control; adjustment of the mA and/or kV according to the patient's size; or use of an iterative reconstruction technique. Specific details can be referenced in the facility's radiology CT exam operational policy. FINDINGS: Midline shift: Negative Ventricles: Negative Brain parenchyma: Negative Extra-axial spaces: Negative Intracranial vasculature: Cavernous internal carotid artery calcifications. Otherwise negative Osseous structures: Negative Paranasal sinuses and mastoid air cells: Mild mucosal thickening involving both maxillary sinuses. Otherwise negative Surrounding soft tissues and orbits: Negative IMPRESSION: 1. No evidence of acute intracranial pathology. 2. Minimal paranasal sinus disease. Report Dictated By: Tito Miranda MD at 02/18/2018 2:02 PM Report E-Signed By: Tito Miranda MD at 02/18/2018 2:04 PM ED Course/Re-evaluation ED Course Patient was admitted to an exam room, history and physical were obtained. Differential diagnoses were considered. On examination patient was alert and oriented 4, cranial nerves II through XII grossly intact, lungs are clear is regular. A CBC, CMP, CT scan of the head and EKG were done. The CBC and CMP were unremarkable, CT scan of the head was negative and EKG showed a normal sinus rhythm. I discussed the findings with patient. Patient states she is ready to go home at this time. Patient states she is not having any pain, no nausea and vomiting. I discussed with patient that there could be many underlying causes to her headaches and muscle spasms. There could be things such as being anxious, being tired or stressed. I would like her to follow-up with her primary care provider. I will like her to go ahead and continue with her medications. I don't believe this is a reaction to any of her medications which causing this as she is just had this vague spasming of the muscles under her eye. She is return to the emergency room if condition worsens. I discussed this with the patient who verbalized understanding and agreement with plan. Decision to Disposition Date: February 18, 2018 Decision to Disposition Time: 14:39 Depart Departure Latest Vital Signs Vital Signs Date Time Temp Pulse Resp B/P (MAP) Pulse Ox O2 Delivery O2 Flow Rate FiO2 02/18/18 14:30 61 9 150/70 (96) 93 02/18/18 13:08 98.0 Room Air Impression: Primary Impression: Headache Additional Impression: Muscle spasm Condition: Improved Disposition: HOME OR SELF-CARE Referrals: FELIPE GLOVER (PCP) Patient Instructions: Acute Headache (ED) Additional Instructions: Get plenty of rest. Limit activity by pain. Make sure that you are drinking plenty of fluids. Return to the ER if condition worsens. Follow up with Felipe Glover in the next week. Problem Qualifiers Primary Impression: Headache Headache type: tension-type Headache chronicity pattern: acute headache Intractability: not intractable Qualified Codes: G44.209 - Tension-type headache, unspecified, not intractable DALIA COLE February 18, 2018 13:13
[2018-02-18] MEDS ORDERED: NS(*) 0.9% 1000 ML BAG 1,000 ML IV ONE (13:26)
[2018-02-18 13:40] LABS: PLATELET COUNT, AUTOMATED 225 K/uL (150-450)
--- NOTE | 2018-02-18 14:08 | RADIOLOGY IMAGING REPORT ---
FACILITY: [facility] PATIENT NAME: Connie Chambers : 1955 MR: [id number] V: [id number] EXAM DATE: ORDERING PHYSICIAN: DALIA COLE TECHNOLOGIST: Location: [facility] - [place] Patient: Connie Chambers : 1955 Visit/Account:[id number] Date of Sevice: 02/18/[address] scan without contrast COMPARISONS: February 06, 2014 ADDITIONAL PERTINENT HISTORY: Headache with left-sided numbness. TECHNIQUE: Multiple axial images were obtained from the skull base to the vertex without IV contrast . One of the following dose optimization techniques was utilized in the performance of this exam: Aut omated exposure control; adjustment of the mA and/or kV according to the patient's size; or use of an iterative reconstruction technique. Specific details can be referenced in the facility's radiology CT exam operational policy. FINDINGS: Midline shift: Negative Ventricles: Negative Brain parenchyma: Negative Extra-axial spaces: Negative Intracranial vasculature: Cavernous internal carotid artery calcifications. Otherwise negative Osseous structures: Negative Paranasal sinuses and mastoid air cells: Mild mucosal thickening involving both maxillary sinuses. O therwise negative Surrounding soft tissues and orbits: Negative IMPRESSION: 1. No evidence of acute intracranial pathology. 2. Minimal paranasal sinus disease. Report Dictated By: Tito Miranda MD at 02/18/2018 2:02 PM Report E-Signed By: Tito Miranda MD at 02/18/2018 2:04 PM WSN:[id number]
--- NOTE | 2018-02-18 14:16 | EKG ---
FACILITY: [facility] - [place] PATIENT NAME: CLIFF PERRY : [id number] MR: [id number] V: [id number] EXAM DATE: ORDERING PHYSICIAN: DALIA COLE TECHNOLOGIST: TAMARA Simmons Reason : Blood Pressure : / mmHG Vent. Rate : 061 BPM Atrial Rate : 061 BPM P-R Int : 196 ms QRS Dur : 090 ms QT Int : 438 ms P-R-T Axes : 045 009 024 degrees QTc Int : 440 ms Normal sinus rhythm Minimal voltage criteria for LVH, may be normal variant Borderline ECG When compared with ECG of 12-NOV-2017 13:54, No significant change was found Confirmed by DAVID MOREIRA ([id number]) on 02/19/2018 6:40:58 AM Referred By: DOUGLAS Confirmed By:DAVID MOREIRA
[2018-02-18 14:30] VITALS: BP 150/70
== END 2018-02-18 14:50 | disposition home or self-care (01) ==
LOC: ER 13:12
DX: G44.209 Tension-type headache, unspecified, not intractable (principal); M62.838 Other muscle spasm
CPT/HCPCS: 70450; 81001; 85025; 86140; 93005; 96360; 99284; J7030; 82040; 82247; 82310; 82374; 82435; 82565; 82947; 84075; 84132; 84155; 84295; 84450; 84460; 84520

== ENCOUNTER 2018-05-16 03:08 | Emergency (ER) | payer OTHER, MEDICARE ==
[2016-08-06 10:11] VITALS: Wt 97.5 kg
[~2018-05-16 03:08] MED LIST changes: -CARB200C2 PO; +CARB200C4 PO; -VALS160T7; +VALS160T8
[2018-05-16] MEDS ORDERED: HYDR-2966 PO (03:19)
[2018-05-16] MEDS ORDERED: ASPI81TA86 PO (03:19)
[2018-05-16] MEDS ORDERED: LORazepam 2 MG/ML VIAL IVP ONE (03:20)
[2018-05-16] MEDS ORDERED: MAGNESIUM SUL* 2 GM/50 ML IVPB 50 ML IVPB ONE (03:20)
--- NOTE | 2018-05-16 03:42 | ER Report ---
History and Physical Time Seen By MD: 03:14 HPI/ROS CHIEF COMPLAINT: Left lower leg cramps HISTORY OF PRESENT ILLNESS: 62-year-old female who underwent surgery of her left Achilles tendon by Dr. Natasha Jacob last week for bone spur development and Achilles malfunction. Patient had her Achilles tendon removed from the bone and multiple spurs were ground down. The Achilles tendon was reattached. Patient had a anesthetic drip running in her leg. It ran out and was removed by her family. Tonight. Patient's having cramping spasms of her calf muscle. He reports that her pain is been fairly well-controlled for the last several days. She is concerned she may have a blood clot. Allergies: Coded Allergies: Sulfa (Sulfonamide Antibiotics) (Verified Allergy, Severe, AIRWAY OBSTRUCTION, 05/16/18) cephalexin (Verified Allergy, Mild, 05/16/18) Only allergic to the Extended Release Keflex. strawberry (Verified Allergy, Mild, 05/16/18) Antihistamines - Ethanolamine (Verified Allergy, Unknown, 05/16/18) Home Meds Reported Medications Hydrochlorothiazide (HYDROCHLOROTHIAZIDE) 25 Mg Tablet, 1 TAB PO QDAY, TAB 05/16/18 Aspirin (ASPIRIN EC) 81 Mg Tablet.dr, 81 MG PO QDAY, TAB 05/16/18 Prazosin Hcl (PRAZOSIN HCL) 5 Mg Capsule, 5 MG PO QHS, CAPSULE 12/08/17 Levothyroxine Sodium (LEVOTHYROXINE SODIUM) 0.125 Mg Tab, 0.25 MG PO QDAY, TAB 12/08/17 Vortioxetine Hydrobromide (Brintellix) 10 Mg Tablet, 1 TAB PO DAILY 12/02/17 Quetiapine Fumarate (SEROQUEL XR) 300 Mg Tabcr, 2 TAB PO HS 12/02/17 Multivits,Th W-Fe,Other Min (THERA-M) 1 Each Tablet, 1 EACH PO QDAY 08/21/17 Gabapentin (GABAPENTIN) 300 Mg Capsule, 300 MG PO TID, CAPSULE 08/19/17 Valsartan (DIOVAN) 320 Mg Tablet, 320 MG PO QAM 04/17/17 Cholecalciferol (Vitamin D3) (VITAMIN D3) 5,000 Unit Tablet, 5000 UNIT PO QAM 04/17/17 Metoprolol Succinate (METOPROLOL SUCCINATE) 200 Mg Tab.er.24h, 1 TAB PO QDAY, TAB 04/17/17 Aripiprazole (ABILIFY MAINTENA) 400 Mg Suser.vial, 400 MG IM MONTHLY 04/17/17 Reviewed Nurses Notes: Yes Old Medical Records Reviewed: Yes Hx Smoking: No Smoking Status: Never Smoker Exposure to Second Hand Smoke?: No Hx Substance Use Disorder: No Hx Alcohol Use: No Constitutional Vital Sign - Last 24 Hours 05/16/18 05/16/18 05/16/18 05/16/18 03:13 03:23 03:38 03:40 Temp 98.3 Pulse 85 74 68 Resp 14 B/P (MAP) 141/77 105/54 (71) Pulse Ox 90 90 88 O2 Delivery Room Air 05/16/18 05/16/18 05/16/18 05/16/18 03:53 04:00 04:08 04:13 Pulse 65 65 64 B/P (MAP) 102/51 (68) Pulse Ox 88 90 89 05/16/18 05/16/18 04:28 04:30 Pulse 66 B/P (MAP) 117/59 (78) Pulse Ox 92 Intake and Output 05/15/18 05/15/18 05/16/18 15:00 23:00 07:00 Intake Total 50 ml Balance 50 ml Physical Exam General appearance: Alert no distress. Respiratory: Chest is non tender, lungs are clear to auscultation. Cardiac: Regular rate and rhythm Extremities: The left lower extremity is in a large dressing extending from the toes up until the upper calf area. Her is good capillary refill. Sensations intact on the toes., Compression of the calf muscle reveals no tenderness, no edema, no firmness to suggest a blood clot. DIFFERENTIAL DIAGNOSIS: After history and physical exam differential diagnosis was considered for some cramp, postoperative pain, DVT, Medical Decision Making Data Points Result Diagram: 05/16/18 0330 05/16/18 033 Laboratory Hematology Test 05/16/18 03:30 Red Blood Count 4.31 M/uL (4.17-5.56) Mean Corpuscular Volume 85.5 fL (80.0-96.0) Mean Corpuscular Hemoglobin 29.0 pg (26.0-33.0) Mean Corpuscular Hemoglobin Concent 33.9 g/dL (32.0-36.0) Red Cell Distribution Width 14.9 % (11.5-14.5) Mean Platelet Volume 7.6 fL (7.2-11.1) Neutrophils (%) (Auto) 47.2 % (39.4-72.5) Lymphocytes (%) (Auto) 41.3 % (17.6-49.6) Monocytes (%) (Auto) 8.3 % (4.1-12.4) Eosinophils (%) (Auto) 2.6 % (0.4-6.7) Basophils (%) (Auto) 0.6 % (0.3-1.4) Nucleated RBC Relative Count (auto) 0.1 /100WBC Neutrophils # (Auto) 3.4 K/uL (2.0-7.4) Lymphocytes # (Auto) 3.0 K/uL (1.3-3.6) Monocytes # (Auto) 0.6 K/uL (0.3-1.0) Eosinophils # (Auto) 0.2 K/uL (0.0-0.5) Basophils # (Auto) 0.0 K/uL (0.0-0.1) Nucleated RBC Absolute Count (auto) 0.01 K/uL Sodium Level 138 mmol/L (137-145) Potassium Level 2.9 mmol/L (3.5-5.0) Chloride Level 101 mmol/L (98-107) Carbon Dioxide Level 28 mmol/L (22-31) Blood Urea Nitrogen 10 mg/dl (7-18) Creatinine 0.80 mg/dl (0.52-1.04) Glomerular Filtration Rate Calc > 60.0 Random Glucose 109 mg/dl (75-110) Calcium Level 8.1 mg/dl (8.4-10.2) Magnesium Level 1.9 mg/dl (1.7-2.2) Total Bilirubin 0.5 mg/dl (0.2-1.3) Aspartate Amino Transf (AST/SGOT) 36 U/L (0-35) Alanine Aminotransferase (ALT/SGPT) 38 U/L (0-56) Alkaline Phosphatase 88 U/L (0-126) Total Protein 6.7 g/dl (6.3-8.2) Albumin 3.7 g/dl (3.5-5.0) Chemistry Test 05/16/18 03:30 White Blood Count 7.2 k/uL (4.5-11.0) Red Blood Count 4.31 M/uL (4.17-5.56) Hemoglobin 12.5 g/dL (12.0-16.0) Hematocrit 36.9 % (34.0-47.0) Mean Corpuscular Volume 85.5 fL (80.0-96.0) Mean Corpuscular Hemoglobin 29.0 pg (26.0-33.0) Mean Corpuscular Hemoglobin Concent 33.9 g/dL (32.0-36.0) Red Cell Distribution Width 14.9 % (11.5-14.5) Platelet Count 235 K/uL (150-450) Mean Platelet Volume 7.6 fL (7.2-11.1) Neutrophils (%) (Auto) 47.2 % (39.4-72.5) Lymphocytes (%) (Auto) 41.3 % (17.6-49.6) Monocytes (%) (Auto) 8.3 % (4.1-12.4) Eosinophils (%) (Auto) 2.6 % (0.4-6.7) Basophils (%) (Auto) 0.6 % (0.3-1.4) Nucleated RBC Relative Count (auto) 0.1 /100WBC Neutrophils # (Auto) 3.4 K/uL (2.0-7.4) Lymphocytes # (Auto) 3.0 K/uL (1.3-3.6) Monocytes # (Auto) 0.6 K/uL (0.3-1.0) Eosinophils # (Auto) 0.2 K/uL (0.0-0.5) Basophils # (Auto) 0.0 K/uL (0.0-0.1) Nucleated RBC Absolute Count (auto) 0.01 K/uL Glomerular Filtration Rate Calc > 60.0 Calcium Level 8.1 mg/dl (8.4-10.2) Magnesium Level 1.9 mg/dl (1.7-2.2) Total Bilirubin 0.5 mg/dl (0.2-1.3) Aspartate Amino Transf (AST/SGOT) 36 U/L (0-35) Alanine Aminotransferase (ALT/SGPT) 38 U/L (0-56) Alkaline Phosphatase 88 U/L (0-126) Total Protein 6.7 g/dl (6.3-8.2) Albumin 3.7 g/dl (3.5-5.0) ED Course/Re-evaluation Clinical Indication for ER IV: Hydration, IV Access ED Course Patient was admitted to an examination room. H&P was done. The differential diagnoses was considered. On clinical examination. She has a large bulky dressing on her left lower extremity that extends approximately longterm up the calf. Palpation of the upper segment of the calf reveals no firmness or tenderness to suggest DVT. Unable to test Homans sign. Her toes have good capillary refill and sensation. A peripheral IV is established. Patient's given magnesium 2 g IV to reduce muscle spasm and Ativan 1 mg. Her potassium returns low at 2.9. She's given 40 mEq of potassium orally. The remainder of her diagnostic studies are unremarkable. Patient is afebrile. I suspect that her nerve block is wearing off. She is beginning to have some muscle cramps and spasm from them waking up. Patient advised to follow-up with Dr. Kaur as planned. Decision to Disposition Date: May 16, 2018 Decision to Disposition Time: 04:30 Depart Departure Latest Vital Signs Vital Signs Date Time Temp Pulse Resp B/P (MAP) Pulse Ox O2 Delivery O2 Flow Rate FiO2 05/16/18 04:30 117/59 (78) 05/16/18 04:28 66 92 05/16/18 03:13 98.3 14 Room Air Impression: Primary Impression: Leg cramps Additional Impressions: Postoperative pain Hypokalemia Condition: Improved Disposition: HOME OR SELF-CARE Referrals: FELIPE MARTINEZ (PCP) Patient Instructions: Hypokalemia (ED), Muscle Spasm (ED) Additional Instructions: Follow-up with as planned Return to the ER for any worsening Problem Qualifiers DESTINEY MEJIA DO May 16, 2018 03:41
[2018-05-16 03:50] LABS: PLATELET COUNT, AUTOMATED 235 K/uL (150-450)
[2018-05-16 04:30] VITALS: BP 117/59
[2018-05-16] MEDS ORDERED: POTASSIUM CHL 20 MEQ TABCR PO ONE (04:30)
== END 2018-05-16 04:42 | disposition home or self-care (01) ==
LOC: ER 03:14
DX: M62.831 Muscle spasm of calf (principal); G89.18 Other acute postprocedural pain; E87.6 Hypokalemia
CPT/HCPCS: 83735; 85025; 96365; 96375; 99284; J2060; J3475; 82040; 82247; 82310; 82374; 82435; 82565; 82947; 84075; 84132; 84155; 84295; 84450; 84460; 84520

== ENCOUNTER → 2018-05-21 | Outpatient (CLI) | payer OTHER, MEDICARE ==
[2016-08-06 10:11] VITALS: BMI 34.7
[~2018-05-21] MED LIST changes: +ASPI81TA86 PO
== END ==
LOC: LAB 15:53
PROVIDERS: ATTEND Internal Medicine Endocrinology, Diabetes & Metabolism
DX: C73 Malignant neoplasm of thyroid gland (principal); E89.0 Postprocedural hypothyroidism
CPT/HCPCS: 36415; 84439; 84443; 86800

== ENCOUNTER 2018-07-22 11:31 | Emergency (ER) | payer OTHER, MEDICARE ==
[2016-08-06 10:11] VITALS: Wt 104.3 kg
[~2018-07-22 11:31] MED LIST changes: -DRISDOL PO; -LEVO-3 PO; -LEVO75TA73 PO; -OLM20 PO; -PANT40TA65 PO; -POTA10CA40 PO; -ROSU20TA23 PO
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
[2018-07-22] MEDS ORDERED: LEVO75TA73 PO (11:49)
[2018-07-22] MEDS ORDERED: LEVO-3 PO (11:49)
[2018-07-22] MEDS ORDERED: METO50TA19 PO (11:49)
[2018-07-22 12:05] LABS: PLATELET COUNT, AUTOMATED 236 K/uL (150-450)
--- NOTE | 2018-07-22 12:15 | BHS - Psychiatric Evaluation ---
ER - Title 25 MHE Evaluation Title 25 Evaluation Patient Detained By: Other (Nurse practitioner) Referral Source: the patient's counselor and [facility] Department Date Patient Detained: Jul 22, 2018 Time Patient Detained: 11:40 Date Residential Expires: Jul 27, 2018 Time Residential Expires: :40 Legal Status: Police Hold: Yes Legal Status: Residence: [facility] Resident Assessment Data Provided By: Law Enforcement, Therapist HPI/ROS: HISTORY OF PRESENT ILLNESS: This is a 62-year-old female who presents to the emergency department in the custody of the [facility] Department for suicidal ideation. The patient has a long-standing history of depression, suicidal thoughts and bipolar. She's been seen and evaluated several times in the behavioral health unit. She sees counseling services 3 times a week. Today she was at her counseling session and did make statements that she wanted "to take all of her pills and kill herself". The counselor then contacted the Police Department, they were able to take the patient into custody and detained her. Subsequently bring her to the emergency department for further evaluation. The patient does tell me during my exam that "she did want to take all of her pills and kill herself". Patient states that over the last several weeks she's had an increase in depressive thoughts, racing thoughts, then the last 2 days the patient tells me that she has formulated a plan with thoughts of taking all of her pills and taking them in order to kill herself. Patient states that she's also had some insomnia, has taken an extra dose of Seroquel last 2 nights in order to sleep however this is does not seem to be working. She arrives cooperative, appears very depressed, very soft voice, she will answer questions when asked but not forthcoming was asked. She does make occasional eye contact otherwise looking down on her feet while sitting in the gurney. She denies any recent illnesses, no nausea or vomiting. No fevers or chills. Admit due to SI or Attempt: Yes Suicide Plan: Has Plan with Access (Has access to all of her medications) Current Suicide Plan Take all of her pills and kill herself Alcohol or Drugs Involved: No Is Patient Info Reliable: Yes Is Collateral Info Reliable: Yes Current Home Psych Meds: Seroquel, Abilify Mental Status Exam General Appearance: Well Groomed, Polite, Other (poor eye contact) Speech: Clear Mood: Dysthmic/Depressed Affect: Flat, Withdrawn Thought Process: Organized, Logical Thought Content: Suicidal Ideation Sensorium: Clear Cognition: Alert & Oriented-Person Memory: Immediate Insight Judgment: Intact Sleep: Insomnia Hallucinations: Denies Delusions: Denies Current Risk & History Current Dangerous Risk Assessm: Current Suicide Ideation Past Dangerous Risk Assessm: Self-Injurious Behaviors Previous Suicide Attempt: Past - High Lethality (attempted hanging) Number of Attempts/Description At least one Previous Psychiatric Illness: Yes Previous Diagnosis/Treatment: Depression, bipolar, borderline Previous Psychiatric Treatment: Yes Risk Assessment & Disposition Evaluated Risk Assessment: The patient is at high risk for suicide, has been detained. Impression: Primary Impression: Depression with suicidal ideation Additional Impression: Bipolar disorder, unspecified Meets Mental Illness Req.: Yes Meets Dangerousness Req.: Yes Emergency Residential to be: Upheld Date of Decision: Jul 22, 2018 Time of Decision: 12:10 Patient is Medically Stable at: Yes Disposition: [facility] Problem Qualifiers Additional Impression: Bipolar disorder, unspecified Active/Remission status: currently active Current bipolar episode type: depressed Current episode severity: severe Psychotic features: without psychotic features Qualified Codes: F31.4 - Bipolar disorder, current episode depressed, severe, without psychotic features CIRILO RAMIREZ [employer]LE[employer] SPECIALIST-BC Jul 22, 2018 12:15
[2018-07-22 13:30] VITALS: BP 144/75
[2018-07-23] MEDS ORDERED: OLM20 PO (12:49)
[2018-07-23] MEDS ORDERED: ROSU20TA23 PO (12:50)
[2018-07-23] MEDS ORDERED: DRISDOL PO (12:52)
[2018-07-23] MEDS ORDERED: POTA10CA40 PO (12:55)
[2018-07-23] MEDS ORDERED: PANT40TA65 PO (12:56)
== END 2018-07-22 14:09 ==
LOC: ER 11:39
DX: F32.9 Major depressive disorder, single episode, unspecified (principal); R45.851 Suicidal ideations
CPT/HCPCS: 36415; 80305; 80320; 80329; 81001; 82040; 82247; 82310; 82374; 82435; 82565; 82947; 83735; 84075; 84132; 84155; 84295; 84443; 84450; 84460; 84520; 85025; 99284

== ENCOUNTER 2018-07-22 13:38 | Inpatient (IN) | payer OTHER, MEDICARE ==
[2016-08-06 10:11] VITALS: Ht 162.6 cm; Wt 104.3 kg
[~2018-07-22] VITALS: Ht 162.6 cm; Wt 104.3 kg
[~2018-07-22 13:38] MED LIST changes: +LEVO-3 PO; +LEVO75TA73 PO
[2018-07-22] MEDS ORDERED: MAG HYD/AL HYD/SIMETH 30ML UDC PO PRN (13:50)
[2018-07-22 14:20] VITALS: BP 132/80
[2018-07-22] MEDS: GABAPENTIN 300 MG CAP PO SCH ×2 (18:32→21:18)
[2018-07-22] MEDS ORDERED: ACETAMINOPHEN 325 MG TAB PO PRN (20:10)
--- NOTE | 2018-07-22 20:22 | EKG ---
FACILITY: [facility] PATIENT NAME: CLIFF PERRY : [id number] MR: [id number]: [id number] EXAM DATE: ORDERING PHYSICIAN: REDDY GARCIA TECHNOLOGIST: TRENTON Simmons Reason : Blood Pressure : / mmHG Vent. Rate : 062 BPM Atrial Rate : 062 BPM P-R Int : 180 ms QRS Dur : 090 ms QT Int : 414 ms P-R-T Axes : 048 037 026 degrees QTc Int : 420 ms Normal sinus rhythm Normal ECG When compared with ECG of 18-FEB-2018 14:06, Nonspecific T wave abnormality no longer evident in Anterior leads Confirmed by DAVID MOREIRA ([id number]) on 07/23/2018 6:25:00 AM Referred By: Confirmed By:DAVID MOREIRA
[2018-07-22] MEDS ORDERED: QUEtiapine FUM 100 MG TAB PO SCH (21:00)
[2018-07-22] MEDS ORDERED: ROSUVASTATIN CALCIUM 10 MG TAB PO SCH (21:00)
[2018-07-22] MEDS ORDERED: VORTIOXETINE HYDROBROMIDE 10 MG TAB PO SCH (21:00)
[2018-07-22] MEDS: METOPROLOL SUCC XL 50 MG TABCR 50 MG TAB.ER.24H PO SCH (21:17)
[2018-07-22 22:08] VITALS: BP 153/78
[2018-07-23] MEDS ORDERED: LEVOTHYROXINE SOD 0.150 MG TAB PO SCH (06:00)
[2018-07-23 06:30] VITALS: BP 110/50
[2018-07-23 08:10] VITALS: BP 151/94
[2018-07-23] MEDS: GABAPENTIN 300 MG CAP PO SCH (08:16)
[2018-07-23] MEDS: METOPROLOL SUCC XL 50 MG TABCR 50 MG TAB.ER.24H PO SCH (08:17)
[2018-07-23] MEDS ORDERED: CHOLECALCIFEROL 1000 UNIT TAB PO SCH (09:00)
[2018-07-23] MEDS ORDERED: MULTIVITAMINS TAB PO SCH ×2 (09:00)
[2018-07-23] MEDS ORDERED: OLMESARTAN 20 MG TAB PO SCH (09:00)
[2018-07-23] MEDS ORDERED: PANTOPRAZOLE SOD 40 MG TABEC PO SCH (09:00)
[2018-07-23] MEDS ORDERED: POTASSIUM CHL 10 MEQ TABCR PO SCH (09:00)
[2018-07-23] MEDS ORDERED: HYDROCHLOROTHIAZIDE 25 MG TAB PO SCH (09:00)
[2018-07-23] MEDS ORDERED: ASPIRIN 81 MG ENTERIC COATED PO SCH (09:00)
[2018-07-23] MEDS ORDERED: OLM20 PO (12:49)
[2018-07-23] MEDS ORDERED: ROSU20TA23 PO (12:50)
[2018-07-23] MEDS ORDERED: DRISDOL PO (12:52)
[2018-07-23] MEDS ORDERED: POTA10CA40 PO (12:55)
[2018-07-23] MEDS ORDERED: PANT40TA65 PO (12:56)
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
[2018-07-26] MEDS ORDERED: [UNRECOGNIZED DRUG - OTHER] PO SCH (09:00)
== END 2018-07-23 13:15 | disposition home or self-care (01) | DRG 883 ==
LOC: BHS 13:38
PROVIDERS: ADMIT Psychiatry & Neurology Psychiatry; ATTEND Psychiatry & Neurology Psychiatry
DX: F60.3 Borderline personality disorder (principal); R45.851 Suicidal ideations; F31.9 Bipolar disorder, unspecified; I10 Essential (primary) hypertension; G47.33 Obstructive sleep apnea (adult) (pediatric); E89.0 Postprocedural hypothyroidism; J45.909 Unspecified asthma, uncomplicated; F10.21 Alcohol dependence, in remission; Z99.81 Dependence on supplemental oxygen; Z85.850 Personal history of malignant neoplasm of thyroid; Z98.84 Bariatric surgery status; Z88.2 Allergy status to sulfonamides; Z88.8 Allergy status to other drugs, medicaments and biological substances; Z62.810 Personal history of physical and sexual abuse in childhood; Z98.1 Arthrodesis status; Z96.653 Presence of artificial knee joint, bilateral; Z90.710 Acquired absence of both cervix and uterus; Z81.1 Family history of alcohol abuse and dependence; Z81.3 Family history of other psychoactive substance abuse and dependence; Z81.8 Family history of other mental and behavioral disorders
CPT/HCPCS: 93005

== ENCOUNTER → 2018-07-22 | Outpatient (CLI) | payer OTHER, MEDICARE ==
[2016-08-06 10:11] VITALS: BMI 34.7
[~2018-07-22] MED LIST changes: +AMLO-111 PO; +AMLO-113 PO; -AMLO-96 PO; -AMLO-99 PO; +DRISDOL PO; +LEVO-3 PO; +LEVO75TA73 PO; -METF-411 PO; +METF-450 PO; +OLM20 PO; +PANT40TA65 PO; +POTA10CA40 PO; +ROSU20TA23 PO
== END ==
LOC: LAB 08:32
PROVIDERS: ATTEND Nurse Practitioner Family
DX: Z11.59 Encounter for screening for other viral diseases (principal)
CPT/HCPCS: 86803

== ENCOUNTER → 2018-07-22 | Outpatient (CLI) | payer OTHER, MEDICARE ==
[2016-08-06 10:11] VITALS: BMI 34.7
== END ==
LOC: LAB 08:28
PROVIDERS: ATTEND Internal Medicine Endocrinology, Diabetes & Metabolism
DX: E89.0 Postprocedural hypothyroidism (principal)
CPT/HCPCS: 36415; 84443

== ENCOUNTER 2018-08-11 00:30 | Day surgery (SDC) | payer OTHER, MEDICARE ==
[2016-08-06 10:11] VITALS: Ht 162.6 cm; Wt 102.5 kg
[~2018-08-11] VITALS: Ht 162.6 cm; Wt 102.5 kg
[~2018-08-11 00:30] MED LIST changes: +DRISDOL PO; +OLM20 PO; +PANT40TA65 PO; +POTA10CA40 PO; +ROSU20TA23 PO
[2018-08-11 05:55] VITALS: BP 117/60
[2018-08-11] MEDS ORDERED: LIDOCAINE MPF 1% 5 ML VIAL ONE (06:20)
[2018-08-11] MEDS ORDERED: PROPOFOL EMUL(*) 10MG/ML 20 ML 60 ML ONE (06:20)
[2018-08-11] MEDS ORDERED: NORMOSOL R SOLN(*) 1000 ML BAG 1,000 ML IV PRN (06:30)
[2018-08-11] MEDS ORDERED: LIDOCAINE/SOD BICARB 8.4% SYR ID ONE (06:30)
[2018-08-11 07:40] VITALS: BP 92/58
--- NOTE | 2018-08-11 07:43 | Short(Outpt) Discharge Summary ---
Discharge Summary Reason for Hosp/Final Diag: (1) Colon cancer screening Status: Chronic Hospital Course & Plan: Colonoscopy completed without problems; normal other than sigmoid diverticulosis. Departure Discharge to: Home, Self Care Discharge Instructions Home Meds Reported Medications Pantoprazole Sodium (PANTOPRAZOLE SODIUM) 40 Mg Tablet.dr, 40 MG PO QDAY, TAB.SR 07/23/18 Potassium Chloride (POTASSIUM CHLORIDE) 10 Meq Capsule.er, 10 MEQ PO QDAY 07/23/18 [Drisdol] 5,000 CAP No Conflict Check, 5000 INTLU PO QWK FRIDAY @ 0900 07/23/18 Rosuvastatin Calcium (CRESTOR) 20 Mg Tablet, 20 MG PO QHS 07/23/18 Olmesartan Medoxomil (BENICAR) 20 Mg Tablet, 20 MG PO QDAY 07/23/18 Levothyroxine Sodium (LEVOTHYROXINE SODIUM) 75 Mcg Tablet, 150 MCG PO QDAY, TAB 07/22/18 Metoprolol Succinate (METOPROLOL SUCCINATE) 50 Mg Tab.er.24h, 2 TAB PO BID, TAB 07/22/18 Hydrochlorothiazide (HYDROCHLOROTHIAZIDE) 25 Mg Tablet, 1 TAB PO QDAY, TAB 05/16/18 Aspirin (ASPIRIN EC) 81 Mg Tablet.dr, 81 MG PO QDAY, TAB 05/16/18 Prazosin Hcl (PRAZOSIN HCL) 5 Mg Capsule, 5 MG PO QHS, CAPSULE 12/08/17 Vortioxetine Hydrobromide (Brintellix) 10 Mg Tablet, 1 TAB PO DAILY 12/02/17 Quetiapine Fumarate (SEROQUEL XR) 300 Mg Tabcr, 2 TAB PO HS 12/02/17 Multivits,Th W-Fe,Other Min (THERA-M) 1 Each Tablet, 1 EACH PO QDAY 08/21/17 Gabapentin (GABAPENTIN) 300 Mg Capsule, 300 MG PO TID, CAPSULE 08/19/17 Cholecalciferol (Vitamin D3) (VITAMIN D3) 5,000 Unit Tablet, 5000 UNIT PO QAM 04/17/17 Aripiprazole (ABILIFY MAINTENA) 400 Mg Suser.vial, 400 MG IM MONTHLY 04/17/17 Diet: Regular Activity: As Tolerated Special Instructions: Your colonoscopy was completed without any problems and your prep was excellent (Good Job!!). I didn't find any polyps, cancers or other problems. I recommend that your next colonoscopy be in 10 years for screening. DAVID HAYDEN MD Aug 11, 2018 07:43
[2018-08-11 08:00] VITALS: BP 112/69
[2018-08-11 08:18] VITALS: BP 125/75
[2018-08-11 08:20] VITALS: BP 125/75
== END 2018-08-11 08:35 | disposition home or self-care (01) ==
LOC: OR 00:30
PROVIDERS: ATTEND Surgery
DX: Z12.11 Encounter for screening for malignant neoplasm of colon (principal); K57.30 Diverticulosis of large intestine without perforation or abscess without bleeding
CPT/HCPCS: 00812; 45378; J2001; J2704

== ENCOUNTER → 2018-09-07 | Outpatient (CLI) | payer OTHER, MEDICARE ==
[2016-08-06 10:11] VITALS: BMI 34.7
--- NOTE | 2018-09-07 11:50 | RADIOLOGY IMAGING REPORT ---
FACILITY: [facility] - [place] PATIENT NAME: Connie Chambers : 1955 MR: [id number] V: [id number] EXAM DATE: ORDERING PHYSICIAN: FELIPE MARTINEZ TECHNOLOGIST: [place] [facility] [place] Patient: Connie Chambers : 1955 Visit/Account:[id number] Date of Sevice: 09/07/2018 DEXA Scan Clinical history: Post hysterectomy menopause. Comparison: DEXA scan from 05/28/2013. LUMBAR SPINE: The bone mineral density (BMD) measured from L1-L4 correlates with a Z-score of 0.1 and a T-score of 0 which is Normal as defined by the World Health Organization. The corresponding risk of fracture in the lumbar spine is Not increased compared with a young adult reference population. This value has increased by 8.5 % since the prior study. More than 5% change is considered significant. HIP: Bone mineral density (BMD) measured in the LEFT total hip region correlates with a Z-score -0.4 and a T-score of -0.6 which is normal as defined by the World Health Organization. The corresponding risk of fracture in the hip is 1-2 t imes increased compared to a young adult reference population. This value has increased by 2.1 % sinc e the prior study. More than 5% change is considered significant. T score left femoral neck -0.5 Bone mineral density (BMD) measured in the Femoral Neck region measures 0.973 g/cm?. IMPRESSION: 1. Lumbar spine: Normal. There has been 8.5% increase in the bone mineral density since the previou s exam. 2. Left Total Hip: Normal. There has been 2.1% increase in the bone mineral density since the previ ous exam. 3. Femoral Neck: Bone Mineral Density is 0.973 g/cm? The next DEXA scan of this patient should include the following sites: L1-L4 and the left hip. FRAX? WHO Fracture Risk Assessment Tool link: <http://www.shef.ac.uk/FRAX/tool.jsp?locationValue=9> PLEASE NOTE: 1) The World Health Organization defines low BMD as follows: T-score Normal > -1 Osteopenia < -1 and > -2.5 Osteoporosis < -2.5 without fractures Established osteoporosis < -2.5 with fractures 2) In general, you may wish to consider: Diagnosis Treatment Follow-up DEXA Normal BMD Prevention 2-3 years Osteopenia Prevention/therapy 1-2 years Osteoporosis Therapy Yearly 3) Fracture risk estimated from the T-score is more accurate for vertebral fractures (often spontane ous) than for hip fractures. Report Dictated By: Mary Tucker MD at 09/07/2018 11:44 AM Report E-Signed By: Mary Tucker MD at 09/07/2018 11:46 AM WSN:[email or web address]
--- NOTE | 2018-09-08 12:16 | RADIOLOGY IMAGING REPORT ---
FACILITY: [facility] - [place] PATIENT NAME: CLIFF PERRY : [id number] MR: [id number] V: [id number] EXAM DATE: ORDERING PHYSICIAN: FELIPE MARTINEZ TECHNOLOGIST: Kamla Shaffer PROCEDURE:BILATERAL DIGITAL SCREENING MAMMOGRAM WITH CAD ASSISTED INTERPRETATION & 3D TOMOSYNTHESIS COMPARISON:Prior mammograms 06/27/15, 05/28/13. INDICATIONS:SCREENING FINDINGS: The breasts are heterogeneously dense which may obscure small masses. The parenchymal pattern has remained stable allowing for difference in mammographic technique & patient positioning. There is a small grouping of round calcifications in the medial inferior Left breast middle 1/3 which have remained stable sense June 2015. DIAGNOSTIC CATEGORY 2--BENIGN FINDING. RECOMMENDATIONS: ROUTINE MAMMOGRAM AND CLINICAL EVALUATION. IMPRESSION: BIRADS 2: Benign finding. No significant abnormality is seen. Dictated by: Mary Tucker M.D. on 09/07/2018 at 17:34 Transcribed by: SERA on 09/08/2018 at 8:42 Approved by: Mary Tucker M.D. on 09/08/2018 at 12:15 [facility]
== END ==
LOC: MAMO 02:14
PROVIDERS: ATTEND Nurse Practitioner Family
DX: Z12.31 Encounter for screening mammogram for malignant neoplasm of breast (principal); E55.9 Vitamin D deficiency, unspecified; E89.41 Symptomatic postprocedural ovarian failure
CPT/HCPCS: 77063; 77067; 77080

== ENCOUNTER 2018-12-13 13:32 | Emergency (ER) | payer OTHER, MEDICARE ==
[2016-08-06 10:11] VITALS: Wt 108.4 kg
[~2018-12-13 13:32] MED LIST changes: -AMLO-111 PO; -AMLO-113 PO; +AMLO-125 PO; +AMLO-127 PO; -QUET150T3 PO; +QUET150T4 PO; -ROSU20TA23 PO; +ROSU20TA24 PO
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
[2018-12-13] MEDS ORDERED: NS(*) 0.9% 1000 ML BAG 1,000 ML IV ONE (13:43)
[2018-12-13] MEDS ORDERED: ASPIRIN 81 MG CHEW PO ONE (13:45)
[2018-12-13 13:59] LABS: PLATELET COUNT, AUTOMATED 249 K/uL (150-450)
--- NOTE | 2018-12-13 14:12 | EKG ---
FACILITY: [facility] PATIENT NAME: CLIFF PERRY : [id number] MR: [id number] V: [id number] EXAM DATE: ORDERING PHYSICIAN: CIRILO RAMIREZ TECHNOLOGIST: Test Reason : CP Blood Pressure : / mmHG Vent. Rate : 067 BPM Atrial Rate : 067 BPM P-R Int : 194 ms QRS Dur : 090 ms QT Int : 424 ms P-R-T Axes : 039 032 034 degrees QTc Int : 448 ms Sinus rhythm Nonspecific T wave abnormality Abnormal ECG Confirmed by DANGELO BARRY ([id number]) on 12/13/2018 7:41:34 PM Referred By: Confirmed By:DANGELO BARRY
--- NOTE | 2018-12-13 14:15 | RADIOLOGY IMAGING REPORT ---
[place] [facility] [place]IENT NAME: Connie Chambers : 1955 MR: [id number] V: [id number] EXAM DATE: ORDERING PHYSICIAN: CIRILO RAMIREZ TECHNOLOGIST: Location: [facility] [place] Patient: Connie Chambers : 1955 Visit/Account:[id number] Date of Sevice: 12/13/2018 Examination: CHEST PA LAT Comparison: 04/17/2017 and earlier. History: Chest Pain Findings: Cardiac and hilar contour size is prominent but unchanged. No new or enlarging consolidatio n, nodule, or evidence of acute peribronchial inflammation. No pneumothorax, edema, or effusion. Cerv ical spine postoperative change. No acute osseous abnormality. IMPRESSION: No findings of acute cardiopulmonary disease. Report Dictated By: Rickey Robledo MD at 12/13/2018 2:09 PM Report E-Signed By: Rickey Robledo MD at 12/13/2018 2:11 PM WSN:[id number]
[2018-12-13] MEDS ORDERED: ARIP1064 (14:17)
[2018-12-13] MEDS ORDERED: NITR0.4T3 (14:17)
[2018-12-13] MEDS ORDERED: IOPAMIDOL 76% 150 ML INFUS BTL 150 ML ONE (14:39)
[2018-12-13] MEDS ORDERED: NS 0.9% 25 ML BAG 50 ML ONE (14:39)
--- NOTE | 2018-12-13 15:11 | RADIOLOGY IMAGING REPORT ---
FACILITY: [facility] PATIENT NAME: Connie Chambers : 1955 MR: [id number] V: [id number] EXAM DATE: ORDERING PHYSICIAN: CIRILO RAMIREZ TECHNOLOGIST: Location: [facility] [place] Patient: Connie Chambers : 1955 Visit/Account:[id number] Date of Sevice: 12/13/2018 EXAMINATION: CTA of the chest with IV contrast HISTORY: Chest pain. Evaluate for PE. TECHNIQUE: Pulmonary embolus protocol - Thin axial CT images of the chest were obtained with IV con trast during maximal pulmonary arterial opacification. Reconstruction of the source data includes mul tiplanar 2D coronal and sagittal reconstructed images, and 3D coronal and sagittal MIP images. Repres entative images have been stored on PACS. One of the following dose optimization techniques was utilized in the performance of this exam: Autom ated exposure control; adjustment of the mA and/or kV according to the patient's size; or use of an i terative reconstruction technique. Specific details can be referenced in the facility's radiology C T exam operational policy. Contrast: 75 mL of IV Isovue-370. COMPARISON: 04/17/2017. FINDINGS: Pulmonary arteries: The pulmonary arteries are well opacified, without suspicious filling defect. Heart, aorta, and great vessels: Normal caliber thoracic aorta. Normal heart size. Coronary artery c alcifications. No pericardial effusion. Lungs and pleura: Slight atelectasis at the lung bases. The lungs are otherwise clear. No suspicious focal consolidation. No pleural effusion or pneumothorax. Mediastinum and elena: Negative. Visualized upper abdomen: Surgical changes of a sleeve gastrectomy. Cholecystectomy. Chest wall: Negative. Bones: No acute osseous findings in the chest. Multilevel degenerative changes along the spine. IMPRESSION: 1. No evidence of pulmonary embolism. 2. No other acute findings in the chest. Report Dictated By: Joshua Ray MD at 12/13/2018 2:59 PM Report E-Signed By: Joshua Ray MD at 12/13/2018 3:06 PM WSN:[id number]
[2018-12-13] MEDS ORDERED: ATRO/SCOPOL/HYOSCY/PB 5 ML ELX PO ONE (15:30)
[2018-12-13] MEDS ORDERED: LIDOCAINE 2% VISC SLN 15ML UDC PO ONE (15:30)
[2018-12-13] MEDS ORDERED: MAG HYD/AL HYD/SIMETH 30ML UDC PO ONE (15:30)
[2018-12-13 16:00] VITALS: BP 137/76
== END 2018-12-13 17:12 | disposition home or self-care (01) ==
LOC: ER 14:14
DX: R07.9 Chest pain, unspecified (principal)
CPT/HCPCS: 36415; 71046; 71275; 84484; 85025; 85379; 93005; 96360; 96361; 99284; J7030; Q9967; 82040; 82247; 82310; 82374; 82435; 82565; 82947; 84075; 84132; 84155; 84295; 84450; 84460; 84520

== ENCOUNTER → 2018-12-31 | Outpatient (CLI) | payer OTHER, MEDICARE ==
[2016-08-06 10:11] VITALS: BMI 34.7
[~2018-12-31] MED LIST changes: +ARIP1064; +NITR0.4T3; +REGADENOSON 0.4 MG/5 ML SYR ONE
--- NOTE | 2018-12-31 15:34 | RADIOLOGY IMAGING REPORT ---
FACILITY: [facility] PATIENT NAME: Connie Chambers : 1955 MR: [id number] V: [id number] EXAM DATE: ORDERING PHYSICIAN: FELIPE MARTINEZ TECHNOLOGIST: Location: [facility] [place] Patient: Connie Chambers : 1955 Visit/Account:[id number] Date of Sevice: 12/31/2018 EXAMINATION: Single isotope SPECT imaging with regadenoson infusion and gated SPECT imaging. DATE OF EXAMINATION: December 31, 2018. DATE OF INTERPRETATION: December 31, 2018. REQUESTING PHYSICIAN: FELIPE MARTINEZ. INDICATION: The patient is a 63-year-old female evaluated for CAD, chest pain. PROCEDURE: After informed consent the patient received an intravenous injection of 12.6 mCi of Tc-99 m sestamibi followed at an appropriate time interval by rest imaging. The patient then subsequently received an intravenous infusion of 0.4 mg of regadenoson per protocol without complication. Resting heart rate was 60 bpm with a peak heart rate of 73 bpm. Blood pressure at rest was 150 / 89 and fol lowing infusion was 141 / 78. Baseline EKG demonstrates sinus rhythm. There were no EKG changes of ischemia following infusion. Symptoms were nonspecific. The patient then received an intravenous in jection of 30.9 mCi of Tc-99m sestamibi followed by stress imaging. RAW DATA: Examination of the summed raw data revealed a good quality study. Breast attenuation is no paty. MYOCARDIAL PERFUSION: The tomographic images demonstrate normal perfusion rest and stress. GATED IMAGES: The gated images demonstrate normal regional wall motion and thickening LVEF 70%. IMPRESSION: 1. Nondiagnostic Lexiscan stress ECG 2. Normal myocardial perfusion scan. 3. Normal LV systolic function; LVEF 70%. Report Dictated By: Keyshawn Choi MD at 12/31/2018 3:26 PM Report E-Signed By: Keyshawn Choi MD at 12/31/2018 3:30 PM WSN:[id number]
== END ==
LOC: NUC 00:55
PROVIDERS: ATTEND Nurse Practitioner Family
DX: R07.9 Chest pain, unspecified (principal); I25.10 Atherosclerotic heart disease of native coronary artery without angina pectoris
CPT/HCPCS: 78452; 93017; A9500; J2785

== ENCOUNTER 2019-01-08 11:39 | Emergency (ER) | payer OTHER, MEDICARE ==
[2016-08-06 10:11] VITALS: Wt 106.6 kg
[~2019-01-08 11:39] MED LIST changes: -REGADENOSON 0.4 MG/5 ML SYR ONE
[2019-01-08] MEDS ORDERED: NS(*) 0.9% 1000 ML BAG 1,000 ML IV ONE (11:43)
[2019-01-08] MEDS ORDERED: ASPIRIN 81 MG CHEW PO ONE (11:45)
--- NOTE | 2019-01-08 11:49 | ER Report ---
History and Physical Time Seen By MD: 11:49 Hx. of Stated Complaint: chest pain for 30min prior to arrival. extensive cardiac history with last NM 2013. took 1 dose at home nitro 30min prior to arrival HPI/ROS CHIEF COMPLAINT: Chest pain HISTORY OF PRESENT ILLNESS: 63-year-old female patient presents to emergency room with complaint of chest pain. Patient states that she has been having persistent chest tightness for the past 3 weeks. She states that it will get worsening to better. She states that today she was at her therapist's office. She states that she's going to bathroom and developed significant chest ti ghtness. She states that it feels like a ratchet strap the somebody is tightening around her chest. Patient states that she felt weak like she is going to fall. She did end up going sitting in her car and took one nitroglycerin. She states that had no improvement and she decided to come here for evaluation. Patient denies any nausea, vomiting. Patient states she does have some shortness of breath. REVIEW OF SYSTEMS: Constitutional: No fever, no chills. Eyes: No discharge. ENT: No sore throat. Cardiovascular: As noted above Respiratory: As noted above Gastrointestinal: No abdominal pain, no vomiting. Genitourinary: No hematuria. Musculoskeletal: No back pain. Skin: No rashes. Neurological: No headache. Allergies: Coded Allergies: Sulfa (Sulfonamide Antibiotics) (Verified Allergy, Severe, AIRWAY OBSTRUCTION, 12/13/18) cephalexin (Verified Allergy, Mild, 12/13/18) Only allergic to the Extended Release Keflex. strawberry (Verified Allergy, Mild, 12/13/18) Antihistamines - Ethanolamine (Verified Allergy, Unknown, 12/13/18) Home Meds Active Scripts Cyclobenzaprine Hcl (CYCLOBENZAPRINE HCL) 10 Mg Tablet, 10 MG PO TID PRN for MUSCLE SPASMS, #15 TAB Prov:DALIA COLE MATERIAL SPECIALIST 01/08/19 Reported Medications Aripiprazole Lauroxil (Aristada) 1,064 Mg/3.9 Ml Suser.syr 12/13/18 Nitroglycerin (NITROGLYCERIN) 0.4 Mg Tab.subl 12/13/18 Pantoprazole Sodium (PANTOPRAZOLE SODIUM) 40 Mg Tablet.dr, 40 MG PO QDAY, TAB.SR 07/23/18 Potassium Chloride (POTASSIUM CHLORIDE) 10 Meq Capsule.er, 10 MEQ PO QDAY 07/23/18 [Drisdol] 5,000 CAP No Conflict Check, 5000 INTLU PO QWK FRIDAY @ 0900 07/23/18 Rosuvastatin Calcium (CRESTOR) 20 Mg Tablet, 20 MG PO QHS 07/23/18 Olmesartan Medoxomil (BENICAR) 20 Mg Tablet, 20 MG PO QDAY 07/23/18 Levothyroxine Sodium (LEVOTHYROXINE SODIUM) 75 Mcg Tablet, 150 MCG PO QDAY, TAB 07/22/18 Metoprolol Succinate (METOPROLOL SUCCINATE) 50 Mg Tab.er.24h, 2 TAB PO BID, TAB 07/22/18 Hydrochlorothiazide (HYDROCHLOROTHIAZIDE) 25 Mg Tablet, 1 TAB PO QDAY, TAB 05/16/18 Aspirin (ASPIRIN EC) 81 Mg Tablet.dr, 81 MG PO QDAY, TAB 05/16/18 Prazosin Hcl (PRAZOSIN HCL) 5 Mg Capsule, 5 MG PO QHS, CAPSULE 12/08/17 Vortioxetine Hydrobromide (Brintellix) 10 Mg Tablet, 1 TAB PO DAILY 12/02/17 Quetiapine Fumarate (SEROQUEL XR) 300 Mg Tabcr, 2 TAB PO HS 12/02/17 Multivits,Th W-Fe,Other Min (THERA-M) 1 Each Tablet, 1 EACH PO QDAY 08/21/17 Gabapentin (GABAPENTIN) 300 Mg Capsule, 300 MG PO TID, CAPSULE 08/19/17 Cholecalciferol (Vitamin D3) (VITAMIN D3) 5,000 Unit Tablet, 5000 UNIT PO QAM 04/17/17 Aripiprazole (ABILIFY MAINTENA) 400 Mg Suser.vial, 400 MG IM MONTHLY 04/17/17 Past Medical/Surgical History Patient has a past medical history of migraines, NM, angina, hypertension, hyperlipidemia, asthma, pneumonia, reflux, ovarian tumor, back pain, thyroid cancer, bipolar, anxiety, depression. Patient has a surgical history of cardiac catheter, gastric sleeve, a probably for ovarian tumor, hysterectomy, cholecystectomy, kidney and bladder are clear surgery, tubal ligation, knee surgery 5, foot surgery 2, arm surgery 3, back and neck fusion, sinus surgery 3, thyroidectomy. Patient has a family medical history of cancer, depression. Reviewed Nurses Notes: Yes Hx Smoking: No Smoking Status: Never Smoker Exposure to Second Hand Smoke?: No Hx Substance Use Disorder: No Hx Alcohol Use: No Constitutional Vital Sign - Last 24 Hours 01/08/19 01/08/19 01/08/19 01/08/19 11:39 11:42 11:42 11:54 Temp 98.9 Pulse 82 74 73 Resp 16 25 B/P (MAP) 140/74 (96) 140/74 Pulse Ox 88 94 O2 Delivery Room Air 01/08/19 01/08/19 01/08/19 01/08/19 12:00 12:09 12:24 12:29 Pulse 82 65 65 Resp 11 21 24 B/P (MAP) 120/67 (84) Pulse Ox 95 94 95 01/08/19 01/08/19 01/08/19 01/08/19 12:30 12:31 12:44 13:14 Pulse 61 62 Resp 21 26 B/P (MAP) 119/61 (80) Pulse Ox 94 96 O2 Flow Rate 2.0 01/08/19 01/08/19 01/08/19 01/08/19 13:29 13:30 13:44 13:49 Pulse 60 57 61 Resp 19 21 0 B/P (MAP) 125/78 (94) Pulse Ox 97 96 97 01/08/19 01/08/19 01/08/19 01/08/19 14:00 14:04 14:19 14:30 Pulse 60 61 Resp 22 18 B/P (MAP) 128/67 (87) 132/67 (88) Pulse Ox 96 97 01/08/19 01/08/19 01/08/19 01/08/19 14:34 14:49 15:00 15:04 Pulse 58 58 58 Resp 19 9 21 B/P (MAP) 132/68 (89) Pulse Ox 97 96 97 01/08/19 01/08/19 01/08/19 15:19 15:30 15:34 Pulse 59 63 Resp 16 9 B/P (MAP) 137/72 (93) Pulse Ox 96 98 Physical Exam General Appearance: The patient is alert, has no immediate need for airway protection and no signs of toxicity. Respiratory: There are no retractions, lungs are clear to auscultation. Cardiovascular: Regular rate and rhythm. Gastrointestinal: Abdomen is soft and non tender, no masses, bowel sounds normal. Skin: Warm and dry, no rashes. Musculoskeletal: Neck is supple non tender. Extremities are nontender, nonswollen and have full range of motion. DIFFERENTIAL DIAGNOSIS: After history and physical exam differential diagnosis was considered for chest pain including but not limited to myocardial ischemia, pericarditis pulmonary embolus, chest wall pain, pleural inflammation and pulmonary infectious causes. Medical Decision Making Data Points Result Diagram: 01/08/19 1201 01/08/19 1201 Laboratory Hematology Test 01/08/19 12:01 01/08/19 14:44 Red Blood Count 3.98 M/uL (4.17-5.56) Mean Corpuscular Volume 88.6 fL (80.0-96.0) Mean Corpuscular Hemoglobin 29.1 pg (26.0-33.0) Mean Corpuscular Hemoglobin Concent 32.9 g/dL (32.0-36.0) Red Cell Distribution Width 14.8 % (11.5-14.5) Mean Platelet Volume 7.6 fL (7.2-11.1) Neutrophils (%) (Auto) 61.2 % (39.4-72.5) Lymphocytes (%) (Auto) 27.2 % (17.6-49.6) Monocytes (%) (Auto) 8.7 % (4.1-12.4) Eosinophils (%) (Auto) 2.1 % (0.4-6.7) Basophils (%) (Auto) 0.8 % (0.3-1.4) Nucleated RBC Relative Count (auto) 0.0 /100WBC Neutrophils # (Auto) 4.1 K/uL (2.0-7.4) Lymphocytes # (Auto) 1.8 K/uL (1.3-3.6) Monocytes # (Auto) 0.6 K/uL (0.3-1.0) Eosinophils # (Auto) 0.1 K/uL (0.0-0.5) Basophils # (Auto) 0.1 K/uL (0.0-0.1) Nucleated RBC Absolute Count (auto) 0.00 K/uL Peripheral Blood Smear No Y/N D-Dimer Quantitative (PE/DVT) 0.89 ug/ml (0-0.50) Sodium Level 141 mmol/L (137-145) Potassium Level 3.4 mmol/L (3.5-5.0) Chloride Level 105 mmol/L (98-107) Carbon Dioxide Level 28 mmol/L (22-31) Blood Urea Nitrogen 9 mg/dl (7-18) Creatinine 1.00 mg/dl (0.52-1.04) Glomerular Filtration Rate Calc 56.4 Random Glucose 102 mg/dl (75-110) Calcium Level 8.3 mg/dl (8.4-10.2) Total Bilirubin 0.2 mg/dl (0.2-1.3) Aspartate Amino Transf (AST/SGOT) 36 U/L (0-35) Alanine Aminotransferase (ALT/SGPT) 33 U/L (0-56) Alkaline Phosphatase 93 U/L (0-126) Total Protein 7.2 g/dl (6.3-8.2) Albumin 4.1 g/dl (3.5-5.0) Troponin I < 0.012 ng/ml Chemistry Test 01/08/19 12:01 01/08/19 14:44 White Blood Count 6.8 k/uL (4.5-11.0) Red Blood Count 3.98 M/uL (4.17-5.56) Hemoglobin 11.6 g/dL (12.0-16.0) Hematocrit 35.3 % (34.0-47.0) Mean Corpuscular Volume 88.6 fL (80.0-96.0) Mean Corpuscular Hemoglobin 29.1 pg (26.0-33.0) Mean Corpuscular Hemoglobin Concent 32.9 g/dL (32.0-36.0) Red Cell Distribution Width 14.8 % (11.5-14.5) Platelet Count 242 K/uL (150-450) Mean Platelet Volume 7.6 fL (7.2-11.1) Neutrophils (%) (Auto) 61.2 % (39.4-72.5) Lymphocytes (%) (Auto) 27.2 % (17.6-49.6) Monocytes (%) (Auto) 8.7 % (4.1-12.4) Eosinophils (%) (Auto) 2.1 % (0.4-6.7) Basophils (%) (Auto) 0.8 % (0.3-1.4) Nucleated RBC Relative Count (auto) 0.0 /100WBC Neutrophils # (Auto) 4.1 K/uL (2.0-7.4) Lymphocytes # (Auto) 1.8 K/uL (1.3-3.6) Monocytes # (Auto) 0.6 K/uL (0.3-1.0) Eosinophils # (Auto) 0.1 K/uL (0.0-0.5) Basophils # (Auto) 0.1 K/uL (0.0-0.1) Nucleated RBC Absolute Count (auto) 0.00 K/uL Peripheral Blood Smear No Y/N D-Dimer Quantitative (PE/DVT) 0.89 ug/ml (0-0.50) Glomerular Filtration Rate Calc 56.4 Calcium Level 8.3 mg/dl (8.4-10.2) Total Bilirubin 0.2 mg/dl (0.2-1.3) Aspartate Amino Transf (AST/SGOT) 36 U/L (0-35) Alanine Aminotransferase (ALT/SGPT) 33 U/L (0-56) Alkaline Phosphatase 93 U/L (0-126) Total Protein 7.2 g/dl (6.3-8.2) Albumin 4.1 g/dl (3.5-5.0) Troponin I < 0.012 ng/ml Coagulation Test 01/08/19 12:01 D-Dimer Quantitative (PE/DVT) 0.89 ug/ml EKG/Imaging EKG Interpretation 12 lead EKG: Rhythm: normal sinus rhythm [address]: normal QRS: normal ST segments: normal Imaging EXAMINATION: CTA of the chest with IV contrast HISTORY: Elevated d-dimer. Chest tightness. TECHNIQUE: Pulmonary embolus protocol - Thin axial CT images of the chest were obtained with IV contrast during maximal pulmonary arterial opacification. Reconstruction of the source data includes multiplanar 2D coronal and sagittal reconstructed images, and 3D coronal and sagittal MIP images. Engagement Director images have been stored on PACS. One of the following dose optimization techniques was utilized in the performance of this exam: Automated exposure control; adjustment of the mA and/or kV according to the patient's size; or use of an iterative reconstruction technique. Specific details can be referenced in the facility's radiology CT exam operational policy. Contrast: 75 mL of IV Isovue-370. COMPARISON: 12/13/2018. FINDINGS: Pulmonary arteries: The pulmonary arteries are well opacified, without suspicious filling defect. Heart, aorta, and great vessels: Normal caliber thoracic aorta, without aneurysm or dissection. Coronary artery calcifications. Normal heart size. No pericardial effusion. Lungs and pleura: The lungs are clear. No focal consolidation or pleural effusion. No pneumothorax. The central airways are patent. Mediastinum and elena: Negative. Visualized upper abdomen: Cholecystectomy. Sleeve gastrectomy. Chest wall: Negative. Bones: No acute osseous findings. Chronic multilevel degenerative changes along the thoracic spine. Vertebral body height is maintained. Partially visualized surgical changes along the cervical spine with interbody fusion hardware at C6-C7. IMPRESSION: 1. No evidence of pulmonary embolism. 2. No other acute findings in the chest. The lungs are clear. Report Dictated By: Joshua Ray MD at 01/08/2019 1:21 PM Report E-Signed By: Joshua Ray MD at 01/08/2019 1:27 PM 2 VIEWS CHEST INDICATION: Chest Pain COMPARISON: December 13, 2018. FINDINGS: Heart size within normal limits. There is no focal infiltrate or lobar consolidation. There is no pneumothorax or pleural effusion. Postsurgical changes noted within the lower cervical spine. Degenerative changes within the thoracic spine. IMPRESSION: 1. No acute cardiopulmonary process. Report Dictated By: Lazaro Woods MD at 01/08/2019 12:32 PM Report E-Signed By: Lazaro Woods MD at 01/08/2019 12:33 PM ED Course/Re-evaluation ED Course Patient was admitted to an exam room, history and physical were obtained. Differential diagnoses were considered. On examination lungs are clear, heart is regular, abdomen is soft nontender. Patient was nontender to palpation of the chest. An IV was started, a CBC, CMP, EKG, troponin, d-dimer, chest x-ray were done. Lab results were unremarkable except patient did have an elevated d-dimer. EKG showed a normal sinus rhythm. Chest x-ray showed no acute cardiopulmonary processes. A CT scan of the chest was done which was negative. I discussed findings with patient. We did wait and do a 3-hour repeat troponin. The troponin remained negative. I discussed the findings with the patient. I discussed with patient that I do not know what is causing the chest tightness that she is ex periencing. It does not appear to be related to her heart or her lungs. I discussed following up with her telemetry nurse, seeing her primary care provider. With her having this persistent pain, with waxing and waning, I believe this could possibly be related to the musculature of the chest. We discussed doing a muscle relaxer see if that would improve her symptoms, patient verbalized agreement with plan. We'll go ahead and discharge patient home at this time with a prescription for Flexeril. She is to follow-up with condition worsens. Decision to Disposition Date: Jan 08, 2019 Decision to Disposition Time: 15:30 Depart Departure Latest Vital Signs Vital Signs Date Time Temp Pulse Resp B/P (MAP) Pulse Ox O2 Delivery O2 Flow Rate FiO2 01/08/19 15:34 63 9 98 01/08/19 15:30 137/72 (93) 01/08/19 12:31 2.0 01/08/19 11:42 98.9 Room Air Impression: Primary Impression: Chest pain Condition: Condition Unchanged Disposition: HOME OR SELF-CARE Referrals: FELIPE MARTINEZ (PCP) New Scripts Cyclobenzaprine Hcl (CYCLOBENZAPRINE HCL) 10 Mg Tablet 10 MG PO TID PRN for MUSCLE SPASMS, #15 TAB Prov: DALIA COLE 01/08/19 Patient Instructions: Chest Pain (ED) Additional Instructions: I am unsure of the cause of your chest pain. I do not think that this is heart related or related to your lungs. Increase fluid intake. Get plenty of rest. Keep a journal of the things that you are doing or eating when the pain seems to worsen. Continue with your normal medications. Follow up with your telemetry nurse as previously scheduled. Return to the ER if condition worsens. Follow up with your primary care provider in the next week. We will try a muscle relaxer to see if that seems to help. Problem Qualifiers Primary Impression: Chest pain Chest pain type: other chest pain Qualified Codes: R07.89 - Other chest pain DALIA COLE Jan 08, 2019 11:49
[2019-01-08] MEDS ORDERED: ASPIRIN 81 MG CHEW ONE ×2 (11:54)
[2019-01-08] MEDS ORDERED: NS(*) 0.9% 1000 ML BAG 1,000 ML ONE ×2 (11:54)
--- NOTE | 2019-01-08 11:54 | EKG ---
FAC[place] [facility] [place]IENT NAME: CLIFF PERRY : [id number] MR: [id number] V: [id number] EXAM DATE: ORDERING PHYSICIAN: DALIA COLE TECHNOLOGIST: Test Reason : Blood Pressure : / mmHG Vent. Rate : 076 BPM Atrial Rate : 076 BPM P-R Int : 198 ms QRS Dur : 096 ms QT Int : 408 ms P-R-T Axes : 079 012 025 degrees QTc Int : 459 ms Normal sinus rhythm Normal ECG When compared with ECG of 12.13.2018 No significant change was found Confirmed by Fercho Subramanian ([id number]) on 01/08/2019 3:11:39 PM Referred By: Confirmed By:Fercho Esparza
[2019-01-08 12:11] LABS: PLATELET COUNT, AUTOMATED 242 K/uL (150-450)
--- NOTE | 2019-01-08 12:37 | RADIOLOGY IMAGING REPORT ---
FACILITY: [facility] - [place] PATIENT NAME: Connie Chambers : 1955 MR: [id number] V: [id number] EXAM DATE: ORDERING PHYSICIAN: DALIA COLE TECHNOLOGIST: Location: [facility] Patient: Connie Chambers : 1955 Visit/Account:[id number] Date of Sevice: 01/08/2019 2 VIEWS CHEST INDICATION: Chest Pain COMPARISON: December 13, 2018. FINDINGS: Heart size within normal limits. There is no focal infiltrate or lobar consolidation. There is no pneumothorax or pleural effusion. Postsurgical changes noted within the lower cervical spine. Degenerative changes within the thoracic spine. IMPRESSION: 1. No acute cardiopulmonary process. Report Dictated By: Lazaro Woods MD at 01/08/2019 12:32 PM Report E-Signed By: Lazaro Woods MD at 01/08/2019 12:33 PM WSN:[email or web address]
--- NOTE | 2019-01-08 13:32 | RADIOLOGY IMAGING REPORT ---
FACILITY: [facility] - [place] PATIENT NAME: Connie Chambers : 1955 MR: [id number] V: [id number] EXAM DATE: ORDERING PHYSICIAN: DALIA COLE TECHNOLOGIST: Location: [facility] - [place] Patient: Connie Chambers : 1955 Visit/Account:[id number] Date of Sevice: 01/08/2019 EXAMINATION: CTA of the chest with IV contrast HISTORY: Elevated d-dimer. Chest tightness. TECHNIQUE: Pulmonary embolus protocol - Thin axial CT images of the chest were obtained with IV con trast during maximal pulmonary arterial opacification. Reconstruction of the source data includes mul tiplanar 2D coronal and sagittal reconstructed images, and 3D coronal and sagittal MIP images. Repres entative images have been stored on PACS. One of the following dose optimization techniques was utilized in the performance of this exam: Autom ated exposure control; adjustment of the mA and/or kV according to the patient's size; or use of an i terative reconstruction technique. Specific details can be referenced in the facility's radiology C T exam operational policy. Contrast: 75 mL of IV Isovue-370. COMPARISON: 12/13/2018. FINDINGS: Pulmonary arteries: The pulmonary arteries are well opacified, without suspicious filling defect. Heart, aorta, and great vessels: Normal caliber thoracic aorta, without aneurysm or dissection. Cor onary artery calcifications. Normal heart size. No pericardial effusion. Lungs and pleura: The lungs are clear. No focal consolidation or pleural effusion. No pneumothorax . The central airways are patent. Mediastinum and elena: Negative. Visualized upper abdomen: Cholecystectomy. Sleeve gastrectomy. Chest wall: Negative. Bones: No acute osseous findings. Chronic multilevel degenerative changes along the thoracic spine. Vertebral body height is maintained. Partially visualized surgical changes along the cervical spin e with interbody fusion hardware at C6-C7. IMPRESSION: 1. No evidence of pulmonary embolism. 2. No other acute findings in the chest. The lungs are clear. Report Dictated By: Joshua Ray MD at 01/08/2019 1:21 PM Report E-Signed By: Joshua Ray MD at 01/08/2019 1:27 PM WSN:[email or web address]
[2019-01-08 15:30] VITALS: BP 137/72
[2019-01-08] MEDS ORDERED: CYCL10TA29 PO (15:35)
== END 2019-01-08 15:44 | disposition home or self-care (01) ==
LOC: ER 11:46
DX: R07.89 Other chest pain (principal)
CPT/HCPCS: 71046; 71275; 84484; 85025; 85379; 93005; 96360; 96361; 99284; J7030; 82040; 82247; 82310; 82374; 82435; 82565; 82947; 84075; 84132; 84155; 84295; 84450; 84460; 84520; Q9967

== ENCOUNTER → 2019-02-03 | Outpatient (CLI) | payer OTHER, MEDICARE ==
[2016-08-06 10:11] VITALS: BMI 34.7
== END ==
LOC: RESP 19:50
PROVIDERS: ATTEND Nurse Practitioner Family
DX: G47.33 Obstructive sleep apnea (adult) (pediatric) (principal); G47.36 Sleep related hypoventilation in conditions classified elsewhere; G47.61 Periodic limb movement disorder

== ENCOUNTER 2019-02-16 14:37 | Outpatient (RCR) | payer OTHER, MEDICARE ==
[2016-08-06 10:11] VITALS: BMI 34.7
[2019-02-08 13:40] VITALS: BP 106/62
[2019-02-08] MEDS: LIDOCAINE/SOD BICARB 8.4% SYR ID PRN (14:15)
[2019-02-10 13:53] VITALS: BP 145/65
[2019-02-10] MEDS: NS(*) 0.9% 100 ML BAG 100 ML IVPB PRN (14:07)
[2019-02-10] MEDS: LIDOCAINE/SOD BICARB 8.4% SYR ID PRN (14:07)
[2019-02-10 15:18] VITALS: BP 121/64
[2019-02-12 14:02] VITALS: BP 133/67
[2019-02-12] MEDS: LIDOCAINE/SOD BICARB 8.4% SYR ID PRN (14:31)
[2019-02-12] MEDS: NS(*) 0.9% 100 ML BAG 100 ML IVPB PRN (14:32)
[2019-02-12 15:50] VITALS: BP 135/62
[~2019-02-16 14:37] MED LIST changes: +DEXTROSE 5%(*) 100 ML BAG 100 ML IVPB PRN; +LIDOCAINE/SOD BICARB 8.4% SYR ID PRN; +NS 0.9% IVP ONE; +NS(*) 0.9% 100 ML BAG 100 ML IVPB PRN; -OMEP-125 PO; +OMEP-126 PO; +[UNRECOGNIZED DRUG - OTHER] IVP ONE
[2019-02-16] MEDS: NS(*) 0.9% 100 ML BAG 100 ML IVPB PRN (15:20)
[2019-02-16] MEDS: LIDOCAINE/SOD BICARB 8.4% SYR ID PRN (15:20)
[2019-02-16 15:21] VITALS: BP 132/73
[2019-02-16] MEDS ORDERED: [UNRECOGNIZED DRUG - OTHER] IVP ONE (15:30)
[2019-02-16] MEDS ORDERED: NS 0.9% IVP ONE (15:30)
[2019-02-16 16:18] VITALS: BP 125/64
== END 2019-03-22 13:02 | disposition home or self-care (01) ==
LOC: SPU 14:37
PROVIDERS: ATTEND Nurse Practitioner Family
DX: D50.9 Iron deficiency anemia, unspecified (principal)
CPT/HCPCS: 96365; J2916; J7050

== ENCOUNTER → 2019-04-12 | Outpatient (CLI) | payer OTHER, MEDICARE ==
[2016-08-06 10:11] VITALS: BMI 34.7
[~2019-04-12] MED LIST changes: +BARIUM SULFATE 340 GM POWD ONE; +CALC-515 PO; +CYAN25004 PO; -DEXTROSE 5%(*) 100 ML BAG 100 ML IVPB PRN; +LEVO175T42 PO; -LIDOCAINE/SOD BICARB 8.4% SYR ID PRN; -NS 0.9% IVP ONE; -NS(*) 0.9% 100 ML BAG 100 ML IVPB PRN; +[UNRECOGNIZED DRUG - CODE] PO; -[UNRECOGNIZED DRUG - OTHER] IVP ONE
--- NOTE | 2019-04-12 09:37 | RADIOLOGY IMAGING REPORT ---
FACILITY: [facility] PATIENT NAME: Connie Chambers : 1955 MR: [id number] V: [id number] EXAM DATE: ORDERING PHYSICIAN: DAVID HAYDEN TECHNOLOGIST: Location: [facility] - [place] Patient: Connie Chambers : 1955 Visit/Account:[id number] Date of Sevice: 04/12/2019 XR UPPER GI SERIES W/O KUB HISTORY: Gastric sleeve. Early satiety. COMPARISON: None TECHNIQUE: Multiple consistencies of barium were administered orally with multiple spot films obtaine d. FINDINGS: Esophagus: The esophagus is normal in caliber and contour with no persistent intrinsic or extrinsic f illing defects. There are no persistent areas of narrowing. Hiatal hernia: Tiny sliding-type hiatal hernia. Reflux: Multiple episodes of moderate gastroesophageal reflux to the clavicular heads Stomach: Status post sleeve gastrectomy. No contrast extravasation. Larger pyloric region that is t ypically seen distal to the staple line. Normal gastric emptying. Duodenum: The duodenal bulb distends normally with contrast with a normal mucosal pattern. Other findings: None significant Dose area product of 2695 uGym2 IMPRESSION: 1. Status post sleeve gastrectomy. No evidence of complication. 2. Tiny sliding-type hiatal hernia with moderate gastroesophageal reflux. Report Dictated By: Calvin Ashraf MD at 04/12/2019 9:21 AM Report E-Signed By: Calvin Ashraf MD at 04/12/2019 9:30 AM WSN:[email or web address]
== END ==
LOC: RAD 01:13
PROVIDERS: ATTEND Surgery
DX: K21.9 Gastro-esophageal reflux disease without esophagitis (principal); K44.9 Diaphragmatic hernia without obstruction or gangrene; Z98.84 Bariatric surgery status
CPT/HCPCS: 74240

== ENCOUNTER 2019-05-12 01:23 | Day surgery (SDC) | payer OTHER, MEDICARE ==
[2016-08-06 10:11] VITALS: Ht 162.6 cm; Wt 108.4 kg
[2019-05-12] VITALS (7 sets, daily range): BP systolic 140–155; BP diastolic 74–93
[~2019-05-12] VITALS: Ht 162.6 cm; Wt 108.4 kg
[~2019-05-12 01:23] MED LIST changes: -BARIUM SULFATE 340 GM POWD ONE; +MODA200T6 PO
[2019-05-12] MEDS ORDERED: PROPOFOL EMUL(*) 10MG/ML 20 ML 40 ML ONE (07:23)
[2019-05-12] MEDS ORDERED: LIDOCAINE MPF 1% 5 ML VIAL ONE (07:23)
[2019-05-12] MEDS ORDERED: LIDOCAINE/SOD BICARB 8.4% SYR ID ONE (07:45)
[2019-05-12] MEDS ORDERED: NORMOSOL R SOLN(*) 1000 ML BAG 1,000 ML IV PRN (07:45)
[2019-05-12] MEDS ORDERED: GLYCOPYRROLATE 0.2MG/ML 1 ML INJ IVP ONE (07:55)
--- NOTE | 2019-05-12 08:48 | Short(Outpt) Discharge Summary ---
Discharge Summary Reason for Hosp/Final Diag: (1) Chest pain Status: Acute Hospital Course & Plan: EGD with polypectomy x1 from pylorus completed without problems. No cause for chest pain identified. (2) Regurgitation of food Status: Chronic Departure Discharge to: Home, Self Care Discharge Instructions Home Meds Reported Medications Modafinil (MODAFINIL) 200 Mg Tablet, 200 MG PO QDAY 05/05/19 Calcium Carbonate (TUMS) 200 Mg Tab.chew, 200 MG PO QDAY, TAB.CHEW 03/30/19 Cyanocobalamin (Vitamin B-12) (Vitamin B12) 2,500 Mcg Tablet, 1 TAB PO QDAY 03/30/19 Omeprazole (OMEPRAZOLE) 20 Mg Capsule.dr, 1 CAP PO QDAY, CAP 03/30/19 Isosorbide Mononitrate (ISOSORBIDE MONONITRATE ER) 120 Mg Tab.er.24h, 120 MG PO QDAY 03/30/19 Levothyroxine Sodium (LEVOTHYROXINE SODIUM) 175 Mcg Tablet, 175 MCG PO QDAY 03/30/19 Aripiprazole Lauroxil (Aristada) 1,064 Mg/3.9 Ml Suser.syr 12/13/18 Nitroglycerin (NITROGLYCERIN) 0.4 Mg Tab.subl 12/13/18 Potassium Chloride (POTASSIUM CHLORIDE) 10 Meq Capsule.er, 10 MEQ PO QDAY 07/23/18 Rosuvastatin Calcium (CRESTOR) 20 Mg Tablet, 40 MG PO QHS 07/23/18 Metoprolol Succinate (METOPROLOL SUCCINATE) 50 Mg Tab.er.24h, 2 TAB PO BID, TAB 07/22/18 Hydrochlorothiazide (HYDROCHLOROTHIAZIDE) 25 Mg Tablet, 1 TAB PO QDAY, TAB 05/16/18 Aspirin (ASPIRIN EC) 81 Mg Tablet.dr, 81 MG PO QDAY, TAB 05/16/18 Prazosin Hcl (PRAZOSIN HCL) 5 Mg Capsule, 5 MG PO QHS, CAPSULE 12/08/17 Vortioxetine Hydrobromide (Brintellix) 10 Mg Tablet, 1 TAB PO DAILY 12/02/17 Quetiapine Fumarate (SEROQUEL XR) 300 Mg Tabcr, 2 TAB PO HS 12/02/17 Multivits,Th W-Fe,Other Min (THERA-M) 1 Each Tablet, 1 EACH PO QDAY 08/21/17 Gabapentin (GABAPENTIN) 300 Mg Capsule, 300 MG PO TID, CAPSULE 08/19/17 Cholecalciferol (Vitamin D3) (VITAMIN D3) 5,000 Unit Tablet, 5000 UNIT PO QAM 04/17/17 Discontinued Reported Medications Aripiprazole (ABILIFY MAINTENA) 400 Mg Suser.vial, 400 MG IM MONTHLY 04/17/17 Diet: Regular Activity: As Tolerated Special Instructions: Your upper endoscopy was completed without problems. Your esophagus looked normal. I removed a polyp from your stomach and it was sent to pathology. My office will call you in the next day or two to schedule a follow up appointment to see me back in my office to discuss the results of these tests and to see how you're doing and what further testing or treatment needs to be done. Problem Qualifiers (1) Chest pain: Chest pain type: other chest pain Qualified Codes: R07.89 - Other chest pain DAVID HAYDEN MD May 12, 2019 08:48
== END 2019-05-12 09:50 | disposition home or self-care (01) ==
LOC: OR 01:23
PROVIDERS: ATTEND Surgery
DX: R07.9 Chest pain, unspecified (principal); K31.7 Polyp of stomach and duodenum
CPT/HCPCS: 43251; 83516; 88305; 88342; J2001; J2704; J3490